=== PATIENT | male | born 1970 | race Hispanic/Latino ===

== ENCOUNTER 2016-06-19 10:05 | Outpatient (CLI) | payer OTHER ==
[2016-06-19 10:25] LABS: #Basophils 0.1 thou/uL (0.0-0.2); #Eosinphils 0.4 thou/uL (0.0-0.7); #Lymphocytes 2.1 thou/uL (1.20-3.40); #Monocytes 0.6 thou/uL (0.11-0.59); #Neutrophils 6.1 thou/uL (1.40-6.50); %Eosinophils 4.6 % (0.0-10.0); %Lymphocytes 22.3 % (21.0-51.0); %Monocytes 6.4 % (0.0-10.0); Hematocrit 29.3 % (42.0-52.0); Mean Platelet Volume 4.7 fL (7.4-10.4); Red Blood Cell (RBC) Count 3.54 mill/uL (4.70-6.10); White Blood Cell (WBC) Count 9.3 thou/uL (4.8-10.8)
[2016-06-19 10:36] LABS: Hemoglobin A1c 11.7 % (4.0-6.0)
[2016-06-19 10:44] LABS: ALT (SGPT) 18 U/L (0-55); AST (SGOT) 14 U/L (5-34); Alkaline Phosphatase 153 U/L (40-150); Anion Gap 14 mmol/L (10-20); BUN (Urea Nitrogen) 42 mg/dL (8.9-20.6); Bilirubin, Total 0.1 mg/dL (0.2-1.2); Calc. Creatinine Clearance 0 mL/min (70-130); Calcium 8.5 mg/dL (7.8-10.44); Carbon Dioxide 24 mmol/L (22-29); Chloride 104 mmol/L (98-107); Estimated GFR-MDRD 23; Globulin 4.2 g/dL (2.4-3.5); LDL Cholesterol, Calculated 26 mg/dL
== END 2016-06-19 10:06 | disposition home or self-care (01) ==
LOC: NAV LABSP 10:05
PROVIDERS: ATTEND Family Medicine
DX: I50.9 Heart failure, unspecified (principal); E11.9 Type 2 diabetes mellitus without complications
CPT/HCPCS: 36415; 80053; 80061; 83036; 84443; 85025

== ENCOUNTER 2016-06-20 13:45 | Outpatient (CLI) | payer OTHER | END 2016-06-20 13:46 | disposition home or self-care (01) | LOC: NAV LABSP 13:45 | PROVIDERS: ATTEND Family Medicine | DX: R19.5 Other fecal abnormalities (principal) | CPT/HCPCS: 82270 ==

== ENCOUNTER 2016-06-24 09:07 | Outpatient (CLI) | payer OTHER | END 2016-06-24 09:08 | disposition home or self-care (01) | LOC: NAV LABSP 09:07 | PROVIDERS: ATTEND Family Medicine | DX: R79.9 Abnormal finding of blood chemistry, unspecified (principal) | CPT/HCPCS: 82274 ==

== ENCOUNTER 2016-06-25 16:04 | Outpatient (CLI) | payer OTHER | END 2016-06-25 16:05 | disposition home or self-care (01) | LOC: NAV LABSP 16:04 | PROVIDERS: ATTEND Family Medicine | DX: R19.7 Diarrhea, unspecified (principal) | CPT/HCPCS: 82270; 87324; 87449 ==

== ENCOUNTER 2016-06-26 10:56 | Outpatient (CLI) | payer OTHER ==
[2016-06-26 15:16] LABS: Anion Gap 12 mmol/L (10-20); BUN (Urea Nitrogen) 35 mg/dL (8.9-20.6); Calc. Creatinine Clearance 0 mL/min (70-130); Calcium 8.7 mg/dL (7.8-10.44); Carbon Dioxide 25 mmol/L (22-29); Chloride 108 mmol/L (98-107); Estimated GFR-MDRD 25
[2016-06-26 15:21] LABS: #Eosinphils 0.2 thou/uL (0.0-0.7); #Lymphocytes 2.2 thou/uL (1.20-3.40); #Monocytes 0.7 thou/uL (0.11-0.59); #Neutrophils 5.2 thou/uL (1.40-6.50); %Basophils 0.6 % (0.0-1.0); %Eosinophils 2.9 % (0.0-10.0); %Monocytes 7.9 % (0.0-10.0); Hematocrit 26.8 % (42.0-52.0); Mean Platelet Volume 4.9 fL (7.4-10.4); Red Blood Cell (RBC) Count 3.32 mill/uL (4.70-6.10); White Blood Cell (WBC) Count 8.4 thou/uL (4.8-10.8)
== END 2016-06-26 10:57 | disposition home or self-care (01) ==
LOC: NAV LABSP 10:56
PROVIDERS: ATTEND Family Medicine
DX: I50.9 Heart failure, unspecified (principal); E11.9 Type 2 diabetes mellitus without complications
CPT/HCPCS: 36415; 80048; 85025

== ENCOUNTER 2016-07-03 09:02 | Outpatient (CLI) | payer OTHER ==
[2016-07-03 09:37] LABS: #Basophils 0.1 thou/uL (0.0-0.2); #Eosinphils 0.3 thou/uL (0.0-0.7); #Lymphocytes 2.1 thou/uL (1.20-3.40); #Monocytes 0.8 thou/uL (0.11-0.59); #Neutrophils 5.8 thou/uL (1.40-6.50); %Basophils 1.1 % (0.0-1.0); %Eosinophils 3.7 % (0.0-10.0); %Lymphocytes 22.6 % (21.0-51.0); Hematocrit 28.9 % (42.0-52.0); Mean Platelet Volume 5.4 fL (7.4-10.4); White Blood Cell (WBC) Count 9.1 thou/uL (4.8-10.8)
[2016-07-03 09:51] LABS: Anion Gap 12 mmol/L (10-20); BUN (Urea Nitrogen) 41 mg/dL (8.9-20.6); Calc. Creatinine Clearance 0 mL/min (70-130); Carbon Dioxide 28 mmol/L (22-29); Chloride 105 mmol/L (98-107); Estimated GFR-MDRD 22
== END 2016-07-03 09:03 | disposition home or self-care (01) ==
LOC: NAV LABSP 09:02
PROVIDERS: ATTEND Family Medicine
DX: I50.9 Heart failure, unspecified (principal); E11.9 Type 2 diabetes mellitus without complications
CPT/HCPCS: 36415; 80048; 85025

== ENCOUNTER 2016-07-10 07:00 | Outpatient (CLI) | payer OTHER ==
[2016-07-10 08:13] LABS: #Basophils 0.1 thou/uL (0.0-0.2); #Eosinphils 0.4 thou/uL (0.0-0.7); #Monocytes 0.7 thou/uL (0.11-0.59); %Basophils 0.7 % (0.0-1.0); %Eosinophils 3.9 % (0.0-10.0); %Lymphocytes 22.2 % (21.0-51.0); %Monocytes 7.5 % (0.0-10.0); Hematocrit 30.7 % (42.0-52.0); Mean Platelet Volume 5.9 fL (7.4-10.4); White Blood Cell (WBC) Count 9.1 thou/uL (4.8-10.8)
[2016-07-10 08:26] LABS: Anion Gap 14 mmol/L (10-20); BUN (Urea Nitrogen) 41 mg/dL (8.9-20.6); Calc. Creatinine Clearance 0 mL/min (70-130); Calcium 9.3 mg/dL (7.8-10.44); Carbon Dioxide 23 mmol/L (22-29); Chloride 106 mmol/L (98-107); Estimated GFR-MDRD 23
== END 2016-07-10 07:01 | disposition home or self-care (01) ==
LOC: NAV LABSP 07:00
PROVIDERS: ATTEND Family Medicine
DX: E11.9 Type 2 diabetes mellitus without complications (principal); I50.9 Heart failure, unspecified
CPT/HCPCS: 36415; 80048; 85025

== ENCOUNTER 2016-07-14 22:54 | Emergency (ER) | payer OTHER ==
[2016-07-14] MEDS ORDERED: Fentanyl 100 MCG/2 ML VIAL ONE (23:14)
[2016-07-14 23:16] LABS: #Basophils 0.1 thou/uL (0.0-0.2); #Eosinphils 0.3 thou/uL (0.0-0.7); #Lymphocytes 2.3 thou/uL (1.20-3.40); #Monocytes 0.7 thou/uL (0.11-0.59); %Basophils 0.9 % (0.0-1.0); %Eosinophils 2.8 % (0.0-10.0); %Lymphocytes 24.7 % (21.0-51.0); %Monocytes 7.6 % (0.0-10.0); Hematocrit 32.6 % (42.0-52.0); Mean Platelet Volume 5.9 fL (7.4-10.4); Red Blood Cell (RBC) Count 3.98 mill/uL (4.70-6.10); White Blood Cell (WBC) Count 9.4 thou/uL (4.8-10.8)
[2016-07-14 23:34] LABS: Bilirubin Negative (Negative); Blood, Urine Moderate (Negative); Glucose, Urine (Dipstick) 500 mg/dL (Negative); Ketone, Urine Negative (Negative); Nitrite Negative (Negative); Protein, Urine (Dipstick) > or equal to 300 mg/dL (Neg-Trace); Urobilinogen 0.2 mg/dL (0.2-1.0)
[2016-07-14 23:35] LABS: ALT (SGPT) 12 U/L (0-55); AST (SGOT) 11 U/L (5-34); Alkaline Phosphatase 130 U/L (40-150); Anion Gap 15 mmol/L (10-20); BUN (Urea Nitrogen) 32 mg/dL (8.9-20.6); Bilirubin, Total 0.2 mg/dL (0.2-1.2); Calc. Creatinine Clearance 0 mL/min (70-130); Calcium 9.1 mg/dL (7.8-10.44); Carbon Dioxide 23 mmol/L (22-29); Chloride 101 mmol/L (98-107); Estimated GFR-MDRD 23; Globulin 4.4 g/dL (2.4-3.5); Protein, Total 7.8 g/dL (6.0-8.3)
[2016-07-14 23:38] LABS: Bacteria/HPF 2+ HPF (None Seen); RBC/HPF 21-50 HPF (0-3); Yeast-All Forms 1+ HPF (None Seen)
[2016-07-14 23:40] LABS: Lactic Acid - Sepsis 2.2 mmol/L (0.5-2.2)
[2016-07-14] MEDS ORDERED: traMADol HCl 50 MG TAB ONE (23:50)
[2016-07-14] MEDS ORDERED: Sodium Chloride 0.9% 0 ML ONE (23:50)
[2016-07-14] MEDS ORDERED: cefTRIAXone\\ROCEPHIN 2 GM VIAL ONE (23:50)
[2016-07-14] MEDS ORDERED: Sodium Chloride 0.9% 1,000 ML ONE (23:50)
[2016-07-14] MEDS ORDERED: Insulin Regular 300 UNITS/3 ML VIAL ONE (23:50)
[2016-07-14] MEDS ORDERED: Sodium Chloride 0.9% 100 ML ONE (23:51)
--- NOTE | 2016-07-15 00:02 | CT ---
CT OF ABDOMEN AND PELVIS PERFORMED WITHOUT CONTRAST ENHANCEMENT: History: Mid left back pain. Patient has Lainez catheter in place, unable to urinate. History of m ultiple lumbar fractures. Comparison: 06-04-15, 12-22-15 FINDINGS: The lung bases show some minimal linear scar or atelectasis. The liver, spleen, pancreas, and gallb ladder regions appear unremarkable on this noncontrast. Right and left adrenal glands are normal in appearance. Mild bilateral hydronephrosis and hydrouret er have a fairly similar appearance to the previous exam. Alinez catheter is in place. There is mar ked diffuse bladder wall thickening present. No significant periaortic or mesenteric adenopathy. T here is a moderate amount of stool present within the transverse and descending colon as well as sig moid region. No inflammatory process. Post-operative changes of the spine are noted. IMPRESSION: Fairly stable mild to moderate bilateral hydronephrosis and hydroureter associated with diffuse blad gary wall thickening. Overall stable exam as compared to the previous study. POS: SCOTTIE
[2016-07-15] MEDS ORDERED: Fluconazole 100 MG TAB ONE (00:09)
--- NOTE | 2016-07-15 01:37 | ERRECORD ---
[facility] EMERGENCY RECORD ADMIN (23:00 [facility]) MERGE: Call In ThuJul 14, 2016 22:51. Ambulance ThuJul 14, 2016 22:50. HPI ABDOMINAL PAIN (23:09 AGRE) CHIEF COMPLAINT: Patient presents for evaluation of abdominal pain. HISTORIAN: History provided by patient, PAIN IN HIS LEFT BACK AND ABDOMEN FOR 3 DAYS. HX OF RECURRENT UTI'S AND USUALLY START WITH BACK PAIN. HAS CHILLS BUT NO FEVER. NO NAUSEA OR VOMITING. NO CONSTIPATION OR DIARRHEA. NO OTHER SYMPTOMS. HAD MULTIPLE FRACTURES OF THE LUMBAR SPINE WITH SURGERY AND UNABLE TO WALK . LIVES IN A SENIOR CARE. HAS A GAYTAN CATHETER IN PLACE BECAUSE UNABLE TO URINATE ON HIS OWN. LOCATION MALE: Symptoms are localized, most severe in the left flank. QUALITY: Pain is dull in nature, described as aching, described as a sensation of fullness, described as throbbing. SEVERITY: Maximum severity of symptoms severe, Currently symptoms are severe. TIME COURSE: Gradual onset of symptoms. ASSOCIATED WITH: Associated with chills, No associated fever, Associated with flank pain, No associated loss of appetite, No associated nausea, No associated testicular pain, No associated trauma, No associated inability to tolerate oral intake, No associated vomiting, Denies any other complaints. RELIEVED BY: Patient's condition relieved by nothing. EXACERBATED BY: Patient's condition exacerbated by nothing. ROS (23:12 AGRE) CONSTITUTIONAL: Historian reports chills, denies fever, denies weakness. EYES: Historian denies eye redness, denies vision changes. ENT: Historian denies sore throat, denies stridor. CARDIOVASCULAR: Historian denies chest pain, denies diaphoresis. RESPIRATORY: Historian denies cough, denies shortness of breath. GI: Historian reports abdominal pain, denies nausea, denies vomiting. MUSCULOSKELETAL: Historian reports back pain, denies neck pain. SKIN: Historian denies skin changes, denies skin lesions. NEUROLOGIC: Historian denies confusion, denies dizziness, denies focal weakness, denies headache. HEMO/LYMPHATIC: Normal hematologic/lymphatic system review, Historian denies petechiae. PSYCHIATRIC: Negative psychiatric review of systems, Historian denies anxiety. PAST MEDICAL HISTORY (23:20 [facility]) MEDICAL HISTORY: Flu vaccine not up to date, Tetanus not up to date, Pneumococcal vaccine not up to &a-1R&a+25V*p+0X*q6235S*c202B*c15G*c2P*p-0X&a-25V&a+1R Name: Roni Le : 1970 M45 MedRec: [id number] AcctNum: [id number] Prepared: ThuJul 15, 2016 06:24 by Interface Page 1 of 7 pMD [facility] EMERGENCY RECORD date, Notes: HYPOKALEMIA, HYPOMAGNESEMIA, URINARY RETENTION , HYDRONEPHROSIS, PT HAS GAYTAN CATH (NOVEMBER 2015), DVT AFTER BACK SURGERY (APR 2015),, Past medical history includes history of diabetes, Type II, Past medical history includes gastrointestinal disease, gastroesophageal reflux disease, Past medical history includes genitourinary history, benign prostatic hypertrophy, Past medical history includes history of hyperlipidemia, high cholesterol, high triglycerides, currently being treated, Past medical history includes history of hypertension, which has been treated, Patient is compliant, Past medical history includes pulmonary disease, pulmonary embolism, Past medical history includes renal disease, end stage renal disease, Flu vaccine up to date, Pneumococcal vaccine up to date, Past medical history includes gastrointestinal disease, pancreatitis, Notes: "Stage 4" kidney disease, Blood clotsx2-on ein lungs and one in ankle , Past medical history includes history of diabetes, Non-compliant, Past medical history includes history of hyperlipidemia, Past medical history includes history of hypertension. MALE SURGICAL HISTORY: Surgical history of tonsillectomy, Lumbar spinal surgery 04/27/2015, Jaw surgery, R wrist sx, Nasal surgery, eye socket repair, heart cath, IVC Filter - removed 05/2015. PSYCHIATRIC HISTORY: Notes: schizophrenia, bipolar. SOCIAL HISTORY: Patient denies alcohol use, Patient is a former drug user, abused marijuana, Patient currently uses tobacco, smokes cigarettes, daily, Patient smokes 1/2 packs per day, Lives in fpc care facility, Name of institution [facility]. KNOWN ALLERGIES ibuprofen Latex, Natural Rubber: Reaction: Rash maitake mushroom (Unconfirmed): Reaction: Anaphylaxis metformin morphine: Reaction: Rash NSAIDS (Non-Steroidal Anti-Inflamma (Unconfirmed) CURRENT MEDICATIONS sucralfate: TABLET : Strength - 1 gram : ORAL Patient Dose: 1 g Oral 2 times a day. (ThuJul 15, 2016 00:05 [facility]) ferrous sulfate: TABLET : Strength - 325 mg (65 mg iron) : ORAL Patient Dose: 325 mg Oral 2 times a day. (ThuJul 15, 2016 00:06 [facility]) atorvastatin: TABLET : Strength - 80 mg : ORAL Patient Dose: 80 mg Oral once a day (at bedtime). (ThuJul 15, 2016 00:06 [facility]) &a-1R&a+25V*p+0X*c9311T*c202B*c15G*c2P*p-0X&a-25V&a+1R Name: Roni Le : 1970 M45 MedRec: [id number] AcctNum: [id number] Prepared: ThuJul 15, 2016 06:24 by Interface Page 2 of 7 pMD [facility] EMERGENCY RECORD Eliquis: TABLET : Strength - 2.5 mg : ORAL Patient Dose: 2.5 mg Oral 2 times a day. (ThuJul 15, 2016 00:06 [facility]) Colace: CAPSULE : Strength - 100 mg : ORAL Patient Dose: 100 mg Oral 2 times a day. (ThuJul 15, 2016 00:07 [facility]) cyclobenzaprine: TABLET : Strength - 10 mg : ORAL Patient Dose: 10 mg Oral 2 times a day. (ThuJul 15, 2016 00:07 [facility]) gabapentin: CAPSULE : Strength - 300 mg : ORAL Patient Dose: 300 mg Oral 2 times a day. (ThuJul 15, 2016 00:08 [facility]) Marcus: POWDER IN PACKET (EA) : Strength - 7 gram-7 gram-1.5 gram : ORAL Patient Dose: 1 Oral 2 times a day. (ThuJul 15, 2016 00:08 [facility]) Flomax: CAPSULE, EXT RELEASE 24 HR : Strength - 0.4 mg : ORAL Patient Dose: 0.4 mg Oral once a day (in the evening). (ThuJul 15, 2016 00:09 [facility]) Dulcolax (bisacodyl): TABLET, DELAYED RELEASE (ENTERIC COATED) : Strength - 5 mg : ORAL Patient Dose: 10 mg Oral once a day (in the evening). (ThuJul 15, 2016 00:09 [facility]) niacin: TABLET, EXTENDED RELEASE : Strength - 500 mg : ORAL Patient Dose: 1000 mg Oral once a day (at bedtime). (ThuJul 15, 2016 00:10 [facility]) furosemide: TABLET : Strength - 40 mg : ORAL Patient Dose: 40 mg Oral once a day (in the morning). (ThuJul 15, 2016 00:12 [facility]) Norvasc: TABLET : Strength - 10 mg : ORAL Patient Dose: 10 mg Oral once a day (in the morning). (ThuJul 15, 2016 00:12 [facility]) multivitamin: CAPSULE : ORAL Patient Dose: 1 tab(s) Oral once a day. (ThuJul 15, 2016 00:13 [facility]) Coreg: TABLET : Strength - 3.125 mg : ORAL Patient Dose: 3.125 mg Oral 2 times a day (with meals).hold for SBP less than 100 or HR less than 60. (ThuJul 15, 2016 00:14 [facility]) Protonix: &a-1R&a+25V*p+0X*k1475U*c202B*c15G*c2P*p-0X&a-25V&a+1R Name: Rey Mino : 1970 M45 MedRec: [id number] AcctNum: [id number] Prepared: ThuJul 15, 2016 06:24 by Interface Page 3 of 7 pMD [facility] EMERGENCY RECORD TABLET, DELAYED RELEASE (ENTERIC COATED) : Strength - 40 mg : ORAL Patient Dose: 40 mg Oral once a day (in the morning). (ThuJul 15, 2016 00:15 [facility]) Invega: TABLET, EXTENDED RELEASE 24 HR : Strength - 6 mg : ORAL Patient Dose: 6 mg Oral once a day (in the morning). (ThuJul 15, 2016 00:16 [facility]) Lexapro: TABLET : Strength - 20 mg : ORAL Patient Dose: 20 mg Oral once a day (in the morning). (ThuJul 15, 2016 00:16 [facility]) traZODone: TABLET : Strength - 100 mg : ORAL Patient Dose: 100 mg Oral As Needed. (ThuJul 15, 2016 00:17 [facility]) traMADol: TABLET : Strength - 50 mg : ORAL Patient Dose: 50 mg Oral every 6 hours PRN. (ThuJul 15, 2016 00:18 [facility]) Tylenol-Codeine #3: TABLET : Strength - 300 mg-30 mg : ORAL Patient Dose: 1 tab(s) Oral every 6 hours PRN. (ThuJul 15, 2016 00:18 [facility]) Tylenol: TABLET : Strength - 325 mg : ORAL Patient Dose: 650 mg Oral every 6 hours PRN. (ThuJul 15, 2016 00:19 [facility]) simethicone: TABLET, CHEWABLE : Strength - 80 mg : ORAL Patient Dose: 80 mg Oral every 8 hours PRN. (ThuJul 15, 2016 00:19 [facility]) Zofran (as hydrochloride): TABLET : Strength - 8 mg : ORAL Patient Dose: 8 mg Oral every 8 hours PRN. (ThuJul 15, 2016 00:20 [facility]) VITAL SIGNS VITAL SIGNS: BP: 155/79, Pulse: 97, Resp: 20, Temp: 97.5 (Oral), Pain: 8 (Sharp), O2 sat: 96 on Room Air, Time: 07/14/2016 22:56. (22:56 [facility]) BP: 132/70, Pulse: 90, Resp: 20, Pain: 7, O2 sat: 97 on Room Air, Time: 07/14/2016 23:45. (23:45 [facility]) BP: 121/70, Pulse: 89, Resp: 20, Pain: 7, O2 sat: 97 on Room Air, Time: 07/15/2016 00:33. (ThuJul 15, 2016 00:33 [facility]) Pain: 1, Time: 07/14/2016 23:20. (23:20 [facility]) PHYSICAL EXAM (23:13 AGRE) CONSTITUTIONAL: Vital signs reviewed, Patient afebrile, Respiratory rate normal, Patient appears non toxic, Patient appears pain free, Patient alert and oriented to person, place and time, &a-1R&a+25V*p+0X*d5612D*c202B*c15G*c2P*p-0X&a-25V&a+1R Name: Roni Le : 1970 M45 MedRec: [id number] AcctNum: [id number] Prepared: ThuJul 15, 2016 06:24 by Interface Page 4 of 7 pMD [facility] EMERGENCY RECORD NURSES NOTES REVIEWED. HEAD: Head exam included findings of head atraumatic, normocephalic. EYES: Eye exam included findings of eyelids normal to inspection, Extraocular muscles intact, Conjunctiva normal, Sclera normal. ENT: Ear exam normal, Nose exam normal, Mouth exam normal. NECK: Neck exam normal, Neck exam included findings of normal range of motion, no meningeal signs, no cervical adenopathy. RESPIRATORY CHEST: Respiratory and chest exam normal, Respiratory exam included findings of no respiratory distress, Breath sounds clear, No wheezing, No rales, No rhonchi, Breath sounds not diminished. CARDIOVASCULAR: Cardiovascular exam included findings of heart rate regular rate and rhythm, Heart sounds with, no rub, no gallop, not muffled, systolic murmur present, Cardiovascular exam included findings of heart rate regular rate and rhythm,. ABDOMEN MALE: Abdominal exam included findings of abdomen tender, to the left upper quadrant, to the left lower quadrant, moderate intensity, Bowel sounds normal, Liver normal, Spleen normal, no distension, no mass, no pulsatile masses, no peritoneal signs, no ventral hernia. BACK: Back exam included findings of normal inspection, range of motion normal, Costovertebral angle tenderness, on the left. UPPER EXTREMITY: Upper extremity exam included findings of inspection normal, Range of motion normal. LOWER EXTREMITY: Lower extremity exam included findings of inspection normal, Range of motion normal, CHRONIC EDEMA OF BILATERAL LOWER EXTREMITIES. NEURO: Neuro exam normal, [place] coma scale 15, Neuro exam findings include patient oriented to person, place and time, Speech normal, Memory normal, Cranial nerves intact, PARESIS OF BILATERAL LOWER EXTREMITIES. SKIN: Skin exam normal, Skin exam included findings of skin warm, dry, and normal in color. LYMPHATIC: Lymphatic exam normal, Lymphatic exam included findings of cervical nodes normal. PSYCHIATRIC: Psychiatric exam normal, Normal affect. 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 MEDICATION ADMINISTRATION SUMMARY Drug Name: Diflucan, Dose Ordered: 200 mg, Route: Oral, Status: Given, Time: 00:09 07/15/2016, Drug Name: Ultram, Dose Ordered: 100 mg, Route: Oral, Status: Given, &a-1R&a+25V*p+0X*f3226R*c202B*c15G*c2P*p-0X&a-25V&a+1R Name: Roni Le : 1970 M45 MedRec: [id number] AcctNum: [id number] Prepared: ThuJul 15, 2016 06:24 by Interface Page 5 of 7 pMD [facility] EMERGENCY RECORD Time: 00:07 07/15/2016, Drug Name: cefTRIAXone injection, Dose Ordered: 2 g, Route: IV Piggy Back, Status: Given, Time: 00:05 07/15/2016, Drug Name: NovoLIN R, Dose Ordered: 10 units, Route: IV Push, Status: Given, Time: 00:00 07/15/2016, Drug Name: sodium chloride 0.9 % intravenous, Dose Ordered: 1000 mL, Route: IV Fluid Infusion, Status: Given, Time: 23:59 07/14/2016, Drug Name: fentaNYL (PF) injection, Dose Ordered: 100 mcg, Route: IV Push, Status: Given, Time: 23:15 07/14/2016, Drug Name: sodium chloride 0.9 % intravenous, Dose Ordered: 1000 mL, Route: IV Fluid Infusion, Status: Given, Time: 23:13 07/14/2016, Detailed record available in Medication Service section. DOCTOR NOTES (ThuJul 15, 2016 06:18 AGRE) RE-EVALUATION: Routine re-evaluation, after administration of analgesics, The patient's condition has improved. TEXT: BLOOD SUGAR UNDER 250 AFTER 2 LITERS OF IV FLUIDS AND 10 UNITS OF REGULAR INSULIN. SINCE PATIENT RECEIVED LONG ACTING INSULIN SHORTLY PRIOR TO ARRIVAL DECIDED NOT TO GIVE ADDITIONAL INSULIN IN ED BUT HE CAN BE MANAGED WITH HIS SLIDING SCALE AT HIS LIVING FACILITY. VS REMAINED STABLE IN THE ED AND HE REMAINED ALERT AND ORIENTED. PAIN RESOLVED WITH ULTRAM. DISCUSSED WITH HIM FINDINGS ON EXAM, RESULTS OF HIS ED WORK UP, UTI, YEAST INFECTION, MANAGEMENT OF HIS BLOOD SUGAR, NEED FOR FOLLOW UP WITH PCP IN AM. HE EXPRESSED UNDERSTANDING AND AGREEMENT WITH THIS PLAN. PATIENT STATUS: Patient has improved since arrival to emergency department. PATIENT PLAN: The patient will be discharged. DATA REVIEWED: Lab data reviewed, Xray data reviewed. PROBLEM LIST No recorded problems DIAGNOSIS (ThuJul 15, 2016 00:04 AGRE) FINAL: PRIMARY: URINARY TRACT INFECTION, ADDITIONAL: BACK PAIN, HYPERGLYCEMIA, YEAST INFECTION. PRESCRIPTION (ThuJul 15, 2016 00:06 AGRE) Diflucan: TABLET : 200 mg : ORAL : Quantity: 1 Unit: tab(s) Route: ORAL Schedule: once a day (at bedtime) Dispense: 14 Unit: tab(s) May substitute. Refills: No Refills POTENTIAL SEVERE INTERACTION: fentaNYL (PF) injection (fentanyl citrate/preservative free) Override Rationale: Benefits outweigh risks, Patient no longer on medication. NOTES: No Refills. Keflex: CAPSULE (HARD, SOFT, ETC.) : 500 mg : ORAL : Quantity: 1 Unit: tab(s) Route: ORAL Schedule: every 6 hours Dispense: 40 &a-1R&a+25V*p+0X*h0059K*c202B*c15G*c2P*p-0X&a-25V&a+1R Name: Roni Le : 1970 3 MedRec: [id number] AcctNum: [id number] Prepared: ThuJul 15, 2016 06:24 by Interface Page 6 of 7 pMD [facility] EMERGENCY RECORD May substitute. Refills: No Refills . NOTES: ^s=No Refills No Refills. DISPOSITION PATIENT: Disposition Type: Discharge, Disposition: *Discharge Home, Condition: Improved. (ThuJul 15, 2016 00:35 AGRE) Patient left the department. (ThuJul 15, 2016 01:27 [facility]) Montero: AGRE=MD Flo, John [facility]=KALYANI Kay, Shakila &a-1R&a+25V*p+0X*v9882D*c202B*c15G*c2P*p-0X&a-25V&a+1R Name: Rey Mino : 1970 3 MedRec: [id number] AcctNum: [id number] Prepared: ThuJul 15, 2016 06:24 by Interface Page 7 of 7 pMD [facility]TDD
--- NOTE | 2016-07-15 01:44 | PICIS ---
[facility] EMERGENCY RECORD ADMIN MERGE: Call In ThuJul 14, 2016 22:51. (23:00 [facility]) Ambulance ThuJul 14, 2016 22:50. (23:00 [facility]) TRIAGE (ThuJul 14, 2016 22:58 [facility]) TRIAGE NOTES: MID-LEFT BACK PAIN. HX OF UTI'S AND KIDNEY INFECTIONS. (ThuJul 14, 2016 22:58 [facility]) PATIENT: NAME: Roni Le, AGE: 45, GENDER: male, : Thu1970, TIME OF GREET: ThuJul 14, 2016 22:56, PREFERRED LANGUAGE: Yoruba, ETHNICITY: or , ECODE BILLING MAP: [facility], SSN: [id number], Zip Code: [address], KG WEIGHT: [phone] (est.), PHONE: , , , PERSON ID: [id number], PCP: Vivek MILLER C. HENRY. (ThuJul 14, 2016 22:58 [facility]) COMPLAINT: CHRONIC BACK PAIN. (ThuJul 14, 2016 22:58 [facility]) ADMISSION: URGENCY: 3 Urgent, ADMISSION SOURCE: [facility], TRANSPORT: AMBULANCE - [facility], BED: TRIAGE. (ThuJul 14, 2016 22:58 [facility]) PAIN: Patient complains of pain described as, sharp, on a scale 0-10 patient rates pain as 8, Location LEFT MIDDLE BACK, Onset was 07/11/2016. (23:20 [facility]) IMMUNIZATIONS: Flu vaccine not up to date, Tetanus not up to date, Pneumococcal vaccine not up to date. (23:20 [facility]) SIRS SCORING: Heart Rate 55-109 (0), Temp range 96.8-101.1 (0), respiratory rate 12-24 (0), Mental Status altered: no (0). (23:20 [facility]) TRIAGE SCREENING: Patient denies suicidal ideation, Patient denies presence of domestic violence. (23:20 [facility]) TREATMENTS IN PROGRESS: IV bag hanging, Site: LAC, Gauge: 20, IV: .9NS, Amount Infused 200, Treatments given Prehospital: 650MG TYLENOL @ 2200. (23:20 [facility]) PROVIDERS: TRIAGE NURSE: Shakila Kay RN. (ThuJul 14, 2016 22:58 [facility]) VITAL SIGNS: BP 155/79, Pulse 97, Resp 20, Temp 97.5, (Oral), Pain 8, (Sharp), O2 Sat 96, on Room Air, Time 07/14/2016 22:56. (22:56 [facility]) PREVIOUS VISIT ALLERGIES: ibuprofen, Latex, Natural Rubber, maitake mushroom, metformin, morphine, NSAIDS (Non-Steroidal Anti-Inflamma. (ThuJul 14, 2016 22:58 [facility]) ibuprofen, Latex, Natural Rubber, maitake mushroom, metformin, morphine, NSAIDS (Non-Steroidal Anti-Inflamma. (23:20 [facility]) KNOWN ALLERGIES ibuprofen Latex, Natural Rubber: Reaction: Rash maitake mushroom (Unconfirmed): Reaction: Anaphylaxis metformin morphine: Reaction: Rash &a-1R&a+25V*p+0X*b1644W*c202B*c15G*c2P*p-0X&a-25V&a+1R Name: Rey Mino : 1970 3 MedRec: [id number] AcctNum: [id number] Prepared: ThuJul 15, 2016 06:29 by Interface Page 1 of 17 pMD [facility] EMERGENCY RECORD NSAIDS (Non-Steroidal Anti-Inflamma (Unconfirmed) CURRENT MEDICATIONS sucralfate: TABLET : Strength - 1 gram : ORAL Patient Dose: 1 g Oral 2 times a day. (ThuJul 15, 2016 00:05 [facility]) ferrous sulfate: TABLET : Strength - 325 mg (65 mg iron) : ORAL Patient Dose: 325 mg Oral 2 times a day. (ThuJul 15, 2016 00:06 [facility]) atorvastatin: TABLET : Strength - 80 mg : ORAL Patient Dose: 80 mg Oral once a day (at bedtime). (ThuJul 15, 2016 00:06 [facility]) Eliquis: TABLET : Strength - 2.5 mg : ORAL Patient Dose: 2.5 mg Oral 2 times a day. (ThuJul 15, 2016 00:06 [facility]) Colace: CAPSULE : Strength - 100 mg : ORAL Patient Dose: 100 mg Oral 2 times a day. (ThuJul 15, 2016 00:07 [facility]) cyclobenzaprine: TABLET : Strength - 10 mg : ORAL Patient Dose: 10 mg Oral 2 times a day. (ThuJul 15, 2016 00:07 [facility]) gabapentin: CAPSULE : Strength - 300 mg : ORAL Patient Dose: 300 mg Oral 2 times a day. (ThuJul 15, 2016 00:08 [facility]) Marcus: POWDER IN PACKET (EA) : Strength - 7 gram-7 gram-1.5 gram : ORAL Patient Dose: 1 Oral 2 times a day. (ThuJul 15, 2016 00:08 [facility]) Flomax: CAPSULE, EXT RELEASE 24 HR : Strength - 0.4 mg : ORAL Patient Dose: 0.4 mg Oral once a day (in the evening). (ThuJul 15, 2016 00:09 [facility]) Dulcolax (bisacodyl): TABLET, DELAYED RELEASE (ENTERIC COATED) : Strength - 5 mg : ORAL Patient Dose: 10 mg Oral once a day (in the evening). (ThuJul 15, 2016 00:09 [facility]) niacin: TABLET, EXTENDED RELEASE : Strength - 500 mg : ORAL Patient Dose: 1000 mg Oral once a day (at bedtime). (ThuJul 15, 2016 00:10 [facility]) furosemide: TABLET : Strength - 40 mg : ORAL Patient Dose: 40 mg Oral once a day (in the morning). (e &a-1R&a+25V*p+0X*q4555U*c202B*c15G*c2P*p-0X&a-25V&a+1R Name: Roni Le : 1970 M45 MedRec: [id number] AcctNum: [id number] Prepared: ThuJul 15, 2016 06:29 by Interface Page 2 of 17 pMD [facility] EMERGENCY RECORD Jul 15, 2016 00:12 [facility]) Norvasc: TABLET : Strength - 10 mg : ORAL Patient Dose: 10 mg Oral once a day (in the morning). (ThuJul 15, 2016 00:12 [facility]) multivitamin: CAPSULE : ORAL Patient Dose: 1 tab(s) Oral once a day. (ThuJul 15, 2016 00:13 [facility]) Coreg: TABLET : Strength - 3.125 mg : ORAL Patient Dose: 3.125 mg Oral 2 times a day (with meals).hold for SBP less than 100 or HR less than 60. (ThuJul 15, 2016 00:14 [facility]) Protonix: TABLET, DELAYED RELEASE (ENTERIC COATED) : Strength - 40 mg : ORAL Patient Dose: 40 mg Oral once a day (in the morning). (ThuJul 15, 2016 00:15 [facility]) Invega: TABLET, EXTENDED RELEASE 24 HR : Strength - 6 mg : ORAL Patient Dose: 6 mg Oral once a day (in the morning). (ThuJul 15, 2016 00:16 [facility]) Lexapro: TABLET : Strength - 20 mg : ORAL Patient Dose: 20 mg Oral once a day (in the morning). (ThuJul 15, 2016 00:16 [facility]) traZODone: TABLET : Strength - 100 mg : ORAL Patient Dose: 100 mg Oral As Needed. (ThuJul 15, 2016 00:17 [facility]) traMADol: TABLET : Strength - 50 mg : ORAL Patient Dose: 50 mg Oral every 6 hours PRN. (ThuJul 15, 2016 00:18 [facility]) Tylenol-Codeine #3: TABLET : Strength - 300 mg-30 mg : ORAL Patient Dose: 1 tab(s) Oral every 6 hours PRN. (ThuJul 15, 2016 00:18 [facility]) Tylenol: TABLET : Strength - 325 mg : ORAL Patient Dose: 650 mg Oral every 6 hours PRN. (ThuJul 15, 2016 00:19 [facility]) simethicone: TABLET, CHEWABLE : Strength - 80 mg : ORAL Patient Dose: 80 mg Oral every 8 hours PRN. (ThuJul 15, 2016 00:19 [facility]) Zofran (as hydrochloride): TABLET : Strength - 8 mg : ORAL Patient Dose: 8 mg Oral every 8 hours PRN. (ThuJul 15, 2016 00:20 [facility]) &a-1R&a+25V*p+0X*v0184H*c202B*c15G*c2P*p-0X&a-25V&a+1R Name: Roni Le : 1970 M45 MedRec: [id number] AcctNum: [id number] Prepared: ThuJul 15, 2016 06:29 by Interface Page 3 of 17 pMD [facility] EMERGENCY RECORD VITAL SIGNS VITAL SIGNS: BP: 155/79, Pulse: 97, Resp: 20, Temp: 97.5 (Oral), Pain: 8 (Sharp), O2 sat: 96 on Room Air, Time: 07/14/2016 22:56. (22:56 [facility]) BP: 132/70, Pulse: 90, Resp: 20, Pain: 7, O2 sat: 97 on Room Air, Time: 07/14/2016 23:45. (23:45 [facility]) BP: 121/70, Pulse: 89, Resp: 20, Pain: 7, O2 sat: 97 on Room Air, Time: 07/15/2016 00:33. (ThuJul 15, 2016 00:33 [facility]) Pain: 1, Time: 07/14/2016 23:20. (23:20 [facility]) NURSING ASSESSMENT: BACK (23:00 [facility]) CONSTITUTIONAL: Complex assessment performed, Patient arrives, via stretcher, via Emergency Medical Services, History obtained from patient, Patient appears, in distress due to pain, Patient cooperative, Patient alert, Oriented to person, place and time, Skin warm, Skin dry, Skin normal in color, Mucous membranes pink, Mucous membranes moist, Patient, with poor personal hygiene, Patient complains of MID-LEFT BACK PAIN. PAIN: sharp pain, to the mid back, to the left flank, Onset of pain 07/11/2016, constant, on a scale 0-10 patient rates pain as 8. BACK: Back assessment findings include tenderness to, the left middle back, Incontinent, of bowel, GAYTAN CATHETER IN PLACE DUE TO URINE RETENTION, Right radial pulse +3(easily palpated, considered normal), Left radial pulse +3(easily palpated, considered normal), Left dorsalis pedis pulse +3(easily palpated, considered normal), Right dorsalis pedis pulse +3(easily palpated, considered normal). NECK: Neck assessment findings include trachea midline, Jugular vein distention. SAFETY: Side rails up, Cart/Stretcher in lowest position, Call light within reach, Hospital ID band on. NURSING PROCEDURE: BEDSIDE TESTING PATIENT IDENTIFIER: Patient actively involved in identification process, Patient's identity verified by patient stating name, Patient's identity verified by patient stating date. (23:01 [facility]) GLUCOSE: Glucose testing indicated for diabetic patient, Capillary blood sample, Result (mg/dl) 354. (23:01 [facility]) Glucose testing indicated for diabetic patient, Glucose testing indicated for hyperglycemia, Capillary blood sample, Result (mg/dl) 240. (ThuJul 15, 2016 00:30 [facility]) SAFETY: Side rails up, Cart/Stretcher in lowest position, Call light within reach, Hospital ID band on. (23:01 [facility]) NURSING PROCEDURE: COMMUNICATIONS (ThuJul 15, 2016 00:45 [facility]) COMMUNICATIONS: [facility], contacted at 00:42, Name of contact &a-1R&a+25V*p+0X*v2611D*c202B*c15G*c2P*p-0X&a-25V&a+1R Name: Roni Le : 1970 M45 MedRec: [id number] AcctNum: [id number] Prepared: ThuJul 15, 2016 06:29 by Interface Page 4 of 17 pMD [facility] EMERGENCY RECORD [facility], Contacted to call report for transfer back to facility, [place] TO CONTACT [facility] FOR TRANSPORT BACK TO FACILITY. NURSING PROCEDURE: DISCHARGE NOTE (ThuJul 15, 2016 01:23 [facility]) DISCHARGE: Patient discharged to fdc, KINDRA CHEATHAM, Copy of chart sent to fdc with patient, on a stretcher, transported via non-urgent ambulance, accompanied by emergency medical services personnel, Summary of Care printed/ provided, Discharge instructions given to patient, Simple or moderate discharge teaching performed, by KALYANI Jhaveri, Prescriptions given and instructions on side effects given, Name of prescription(s) given: KEFLEX & DIFLUCAN, Above person(s) verbalized understanding of discharge instructions and follow-up care. BELONGINGS: Belongings and valuables with patient upon arrival to the Emergency Department include:, Belongings and valuables with patient at time of discharge include:, Belongings remain with patient, Valuables remain with patient. NURSING PROCEDURE: INTAKE AND OUTPUT (ThuJul 15, 2016 01:00 [facility]) INTAKE AND OUTPUT: IV intake(ml): 2100, Total Intake (ml): 2100ml, Urine output(ml): 300, Total Output (ml): 300ml, Grand Total: Intake is greater than output by 1800mls. NURSING PROCEDURE: IV IV SITE 1: IV therapy indicated for hydration, IV therapy indicated for medication administration, IV established, to the left antecubital, using a 20 gauge catheter, Notes: IV PLACED BY EMS [employer]. (23:10 [facility]) FOLLOW-UP SITE 1: After procedure, no drainage at IV site, After procedure, no swelling at IV site, After procedure, no redness at IV site, IV discontinued, due to patient being discharged, catheter intact, Notes: IV discontinued. Tip intact. Pressure applied along with 2x2 and tape. Patient tolerated procedure well. (ThuJul 15, 2016 00:50 [facility]) NURSING PROCEDURE: LAB DRAW LAB DRAW: Lab draw indicated for obtaining specimens for evaluation, Initial lab draw performed, Notes: LABS DRAWN FROM IV SITE. 10ML BLOOD WASTED. 10ML DRAWN FOR TESTING. (23:05 [facility]) Lab draw indicated for obtaining specimens for evaluation, Subsequent lab draw performed, Notes: LABS DRAWN FROM IV SITE. 10ML BLOOD WASTED. 3ML DRAWN FOR TESTING. (23:20 [facility]) NURSING PROCEDURE: TEACHING (23:43 [facility]) TEACHING: Simple or moderate teaching performed, by KALYANI VALDEZ, Gaytan Catheter Care A Gaytan catheter is a rubber tube that is placed through the urethra (opening where urine comes out) and into the bladder. This helps &a-1R&a+25V*p+0X*l4059N*c202B*c15G*c2P*p-0X&a-25V&a+1R Name: Roni Le : 1970 M45 MedRec: [id number] AcctNum: [id number] Prepared: ThuJul 15, 2016 06:29 by Interface Page 5 of 17 pMD [facility] EMERGENCY RECORD drain urine from the bladder. There is a small balloon on the end of the tube that is inflated after insertion. This keeps the catheter from sliding out of the bladder. A Gaytan catheter is used to treat urinary retention (unable to pass urine). It is also used when there is incontinence (loss of bladder control). Home care Finish taking any prescribed antibiotic even if you are feeling better before then. It is important to keep bacteria from getting into the collection bag. Do not disconnect the catheter from the collection bag. Use a leg band to secure the drainage tube, so it does not pull on the catheter. Drain the collection bag when it becomes full using the drain spout at the bottom of the bag. Do not try to pull or remove your catheter. This will injure your urethra. It must be removed by your healthcare provider or nurse. Follow-up care Follow up with your healthcare provider as advised for repeat urine testing and catheter removal or replacement. When to seek medical advice Call your healthcare provider right away if any of these occur: Fever of 100.4F (38C) or higher, or as directed by your healthcare provider Bladder pain or fullness Abdominal swelling, nausea or vomiting, or back pain Blood or urine leakage around the catheter Bloody urine coming from the catheter (if a new symptom) Catheter falls out Catheter stops draining for 6 hours Weakness, dizziness, or fainting, Notes: [facility]INE[facility] CARE PROVIDED PRIOR TO INSERTION OF NEW GAYTAN CATHETER PLACED. HEAD OF PENIS HAD WHITE FILM ALL THE WAY AROUND. PATIENT EDUCATED ON THE NEED TO PERFORM PERICARE EVERYDAY, INCLUDING PULLING BACK THE FORESKIN AND CLEANING THE HEAD OF THE PENIS. PATIENT ALSO EDUCATED ON THENEED TO KEEP GAYTAN CATHETHER ANCHORED TO LEG AND TO USE CAUTION WHEN PUTTING PANTS ON DUE TO TEARING OF OPENING/URETHRA . PATIENT VERBALIZES UNDERSTANDING. NURSING PROCEDURE: TRANSPORT TO TESTS (23:43 [facility]) PATIENT IDENTIFIER: Patient actively involved in identification process, Patient's identity verified by patient stating name, Patient's identity verified by patient stating date. TRANSPORT TO TESTS: Patient transported to CT scan, via cart, Accompanied by x-ray clock repair technician, Patient arrived in location at 2333, Patient departed location at 2343. FOLLOW-UP: After procedure, patient returned to emergency department. NURSING PROCEDURE: URINE COLLECTION (23:20 [facility]) PATIENT IDENTIFIER: Patient actively involved in identification &a-1R&a+25V*p+0X*c4507X*c202B*c15G*c2P*p-0X&a-25V&a+1R Name: Roni Le : 1970 M45 MedRec: [id number] AcctNum: [id number] Prepared: Marixa Jul 15, 2016 06:29 by Interface Page 6 of 17 pMD [facility] EMERGENCY RECORD process, Patient's identity verified by patient stating name, Patient's identity verified by patient stating date. URINE COLLECTION MALE: Simple gaytan inserted, using a 16 fr pre-connected catheter, in one attempt, output amount (mL) 30, urine yellow in color, and cloudy, sediment noted, Gaytan has been anchored to leg and labeled with date and time, Specimen labeled in the presence of the patient and sent to lab, Specimen obtained for culture labeled in the presence of the patient and sent to lab, Notes: 18 FR GAYTAN CATHETHER REMOVED DUE TO PATIENT NOT KNOWING WHEN IT WAS LAST CHANGED OUT. PER ERMD ORDER, GAYTAN REPLACED REPLACED. No inflation of the balloon prior to insertion. KALYANI Valdez did not inflate the balloon until yellow urine passed through the tubing. 10 ml sterile saline inflated the balloon. Patient tolerated procedure well. Gaytan attached to patient's leg with gaytan anchor. FOLLOW UP: Gaytan removed with catheter/balloon intact at 07/14/2016 23:18, Urine output at time of removal (ml) 50, Balloon deflated prior to removal, Patient tolerated procedure well. SAFETY: Side rails up, Cart/Stretcher in lowest position, Call light within reach, Hospital ID band on. ORDER DETAILS Order Name: CBC with Differential, Status: Active, Time: 23:08 07/14/2016, User: ALEK, - Ordered for: MD Rossi Andrea, - Entered by: MD Rossi Andrea - [facility] Jul 14, 2016 23:08, - Quantity: 1, Order Name: Comprehensive Metabolic Panel, Status: Active, Time: 23:08 07/14/2016, User: ALEK, - Ordered for: MD Rossi Andrea, - Entered by: MD Rossi Andrea - [facility] Jul 14, 2016 23:08, - Quantity: 1, Order Name: CT Abdomen Pelvis W Con, Status: Canceled, Time: 23:21 07/14/2016, User: Enrique, - Ordered for: MD Rossi Andrea, - Entered by: MD Rossi Andrea - [facility] Jul 14, 2016 23:08, - Quantity: 1, Order Name: Culture, Urine, Status: Active, Time: 23:08 07/14/2016, User: ALEK, - Ordered for: MD Rossi Andrea, - Entered by: MD Rossi Andrea - [facility] Jul 14, 2016 23:08, - Quantity: 1, Order Name: Lactic Acid with repeat, Status: Active, Time: 23:08 07/14/2016, User: ALEK, - Ordered for: MD Rossi Andrea, - Entered by: MD Rossi Andrea - Mon Jul 14, 2016 23:08, - Quantity: 1, Order Name: SALINE LOCK, Status: Done, Time: 23:21 07/14/2016, User: SHIRA, &a-1R&a+25V*p+0X*v0209E*c202B*c15G*c2P*p-0X&a-25V&a+1R Name: Roni Le : 1970 M45 MedRec: [id number] AcctNum: [id number] Prepared: ThuJul 15, 2016 06:29 by Interface Page 7 of 17 D [facility] EMERGENCY RECORD - Ordered for: MD Rossi Andrea, - Entered by: MD Rossi Andrea - Mon Jul 14, 2016 23:08, - Quantity: 1, Order Name: Urinalysis w/ Rflx Microscopic, Status: Active, Time: 23:08 07/14/2016, User: ALEK, - Ordered for: MD Rossi Andrea, - Entered by: MD Rossi Andrea - Mon Jul 14, 2016 23:08, - Quantity: 1. MEDICATION ADMINISTRATION SUMMARY Drug Name: Diflucan, Dose Ordered: 200 mg, Route: Oral, Status: Given, Time: 00:09 07/15/2016, Drug Name: Ultram, Dose Ordered: 100 mg, Route: Oral, Status: Given, Time: 00:07 07/15/2016, Drug Name: cefTRIAXone injection, Dose Ordered: 2 g, Route: IV Piggy Back, Status: Given, Time: 00:05 07/15/2016, Drug Name: NovoLIN R, Dose Ordered: 10 units, Route: IV Push, Status: Given, Time: 00:00 07/15/2016, Drug Name: sodium chloride 0.9 % intravenous, Dose Ordered: 1000 mL, Route: IV Fluid Infusion, Status: Given, Time: 23:59 07/14/2016, Drug Name: fentaNYL (PF) injection, Dose Ordered: 100 mcg, Route: IV Push, Status: Given, Time: 23:15 07/14/2016, Drug Name: sodium chloride 0.9 % intravenous, Dose Ordered: 1000 mL, Route: IV Fluid Infusion, Status: Given, Time: 23:13 07/14/2016, Detailed record available in Medication Service section. MEDICATION SERVICE cefTRIAXone injection: Order: cefTRIAXone injection (ceftriaxone sodium) - Dose: 2 g : IV Piggy Back Ordered by: John Rossi MD Entered by: John Rossi MD ThuJul 14, 2016 23:44 , Acknowledged by: Courtney Case RN ThuJul 14, 2016 23:52 Documented as given by: Courtney Case RN ThuJul 15, 2016 00:05 Patient, Medication, Dose, Route and Time verified prior to administration. Amount given: 2 g, IV SITE #1 IVPB or drip, initial infusion, IVPB mixed in: 100ml, Fluid: 0.9NS, via primary tubing, via pump tubing, at 200 ml/hr, Catheter placement confirmed via flush prior to administration, IV site without signs or symptoms of infiltration during medication administration, No swelling during administration, No drainage during administration, IV flushed after administration, Correct patient, time, route, dose and medication confirmed prior to administration, Patient advised of actions and side-effects prior to administration, Allergies confirmed and medications reviewed prior to administration, Patient in position of comfort, Side rails up, Cart in lowest position. : Follow Up : No signs or symptoms of allergic reaction noted, _IV SITE #1:_, Medication infusion discontinued, on ThuJul 15, 2016 00:35, 30 minutes, ., Total amount infused: 100ML. (Thu &a-1R&a+25V*p+0X*k5650U*c202B*c15G*c2P*p-0X&a-25V&a+1R Name: Rey Mino : 1970 3 MedRec: [id number] AcctNum: [id number] Prepared: ThuJul 15, 2016 06:29 by Interface Page 8 of 17 pMD [facility] EMERGENCY RECORD 2016 00:35 [facility]) Diflucan: Order: Diflucan (fluconazole) - Dose: 200 mg : Oral POTENTIAL SEVERE INTERACTION: fentaNYL (PF) injection (fentanyl citrate/preservative free) - Benefits outweigh risks Ordered by: John Rossi MD Entered by: John Rossi MD ThuJul 15, 2016 00:03 , Acknowledged by: Courtney Case RN Tue Jul 15, 2016 00:09 Documented as given by: Courtney Case RN [facility] Jul 15, 2016 00:09 Patient, Medication, Dose, Route and Time verified prior to administration. Amount given: 200 mg, Site: Medication administered P.O., Correct patient, time, route, dose and medication confirmed prior to administration, Patient advised of actions and side-effects prior to administration, Allergies confirmed and medications reviewed prior to administration, Patient in position of comfort, Side rails up, Cart in lowest position. fentaNYL (PF) injection: Order: fentaNYL (PF) injection (fentanyl citrate/preservative free) - Dose: 100 mcg : IV Push Ordered by: John Rossi MD Entered by: John Rossi MD ThuJul 14, 2016 23:09 , Acknowledged by: Shakila Kay RN ThuJul 14, 2016 23:13 Documented as given by: Shakila Kay RN ThuJul 14, 2016 23:15 Patient, Medication, Dose, Route and Time verified prior to administration. Amount given: 100MCG, IV SITE #1 IVP, initial medication, Slowly, Awake and alert- acceptable, Catheter placement confirmed via flush prior to administration, IV site without signs or symptoms of infiltration during medication administration, No swelling during administration, No drainage during administration, IV flushed after administration, Correct patient, time, route, dose and medication confirmed prior to administration, Patient advised of actions and side-effects prior to administration, Allergies confirmed and medications reviewed prior to administration. NovoLIN R: Order: NovoLIN R (insulin regular, human) - Dose: 10 units : IV Push Ordered by: John Rossi MD Entered by: John Rossi MD ThuJul 14, 2016 23:39 , Acknowledged by: Courtney Case RN ThuJul 14, 2016 23:52 Documented as given by: Courtney Case RN [facility] Jul 15, 2016 00:00 Patient, Medication, Dose, Route and Time verified prior to administration. Amount given: 10 units, IV SITE #1 IVP, subsequent different medication, Catheter placement confirmed via flush prior to administration, IV site without signs or symptoms of infiltration during medication administration, No swelling during administration, No drainage during administration, IV flushed after administration, Correct patient, time, route, dose and medication confirmed prior to administration, Patient advised of actions and side-effects prior to &a-1R&a+25V*p+0X*i9054J*c202B*c15G*c2P*p-0X&a-25V&a+1R Name: Roni Le : 1970 M45 MedRec: [id number] AcctNum: [id number] Prepared: ThuJul 15, 2016 06:29 by Interface Page 9 of 17 pMD [facility] EMERGENCY RECORD administration, Allergies confirmed and medications reviewed prior to administration, Patient in position of comfort, Side rails up, Cart in lowest position, Co-signed by: Shakila Kay RN ThuJul 15, 2016 00:14, Co-signed by: Shakila Kay RN ThuJul 15, 2016 00:14. : Follow Up : No signs or symptoms of allergic reaction noted, _IV SITE #1:_. (ThuJul 15, 2016 00:30 [facility]) sodium chloride 0.9 % intravenous: Order: sodium chloride 0.9 % intravenous (0.9 % sodium chloride) - Dose: 1000 mL : IV Fluid Infusion Ordered by: John Rossi MD Entered by: John Rossi MD ThuJul 14, 2016 23:08 Documented as given by: Shakila Kay RN ThuJul 14, 2016 23:13 Patient, Medication, Dose, Route and Time verified prior to administration. IV SITE #1 IV fluids established for hydration, IV SITE #1 into left antecubital, IV SITE #1 1st bag hung, amount 1 Liter hung, IV SITE #1 bolus of 1000 ml established, IV SITE #1 Rate of bolus, via primary tubing, via pump tubing, Awake and alert- acceptable, Catheter placement confirmed via flush prior to administration, IV site without signs or symptoms of infiltration during medication administration, No swelling during administration, No drainage during administration, IV flushed after administration, Correct patient, time, route, dose and medication confirmed prior to administration, Patient advised of actions and side-effects prior to administration, Allergies confirmed and medications reviewed prior to administration, BAG CONTINUED FROM EMS. : Follow Up : No signs or symptoms of allergic reaction noted, _IV SITE #1:_, IV fluid infusion discontinued, on ThuJul 14, 2016 23:55, 45 minutes, ., Total amount infused: 1000 ML, IV Line flushed after administration, Advised not to ambulate without assistance, Patient in position of comfort, Side rails up, Cart in lowest position. (23:55 [facility]) sodium chloride 0.9 % intravenous: Order: sodium chloride 0.9 % intravenous (0.9 % sodium chloride) - Dose: 1000 mL : IV Fluid Infusion Ordered by: John Rossi MD Entered by: John Rossi MD ThuJul 14, 2016 23:37 , Acknowledged by: Courtney Case RN ThuJul 14, 2016 23:52 Documented as given by: Courtney Case RN ThuJul 14, 2016 23:59 Patient, Medication, Dose, Route and Time verified prior to administration. Amount given: 1000 ml, IV SITE #1 IV fluids established for hydration, IV SITE #1 into left antecubital, IV SITE #1 2nd bag hung, amount 1 Liter hung, IV SITE #1 bolus of 1000 ml established, via primary tubing, via pump tubing, Catheter placement confirmed via flush prior to administration, IV site without signs or symptoms of infiltration during medication administration, No swelling during administration, No drainage during administration, IV flushed after administration, Correct patient, time, route, dose and medication &a-1R&a+25V*p+0X*i8136B*c202B*c15G*c2P*p-0X&a-25V&a+1R Name: Roni Le : 1970 M45 MedRec: [id number] AcctNum: [id number] Prepared: ThuJul 15, 2016 06:29 by Interface Page 10 of 17 pMD [facility] EMERGENCY RECORD confirmed prior to administration, Patient advised of actions and side-effects prior to administration, Allergies confirmed and medications reviewed prior to administration, Patient in position of comfort, Side rails up, Cart in lowest position. : Follow Up : No signs or symptoms of allergic reaction noted, _IV SITE #1:_, IV fluid infusion discontinued, on ThuJul 15, 2016 00:50, 55 minutes, ., Total amount infused: 1000 ML, IV Discontinued with catheter intact, Advised not to ambulate without assistance, Patient in position of comfort, Side rails up, Cart in lowest position. (ThuJul 15, 2016 00:50 [facility]) Ultram: Order: Ultram (tramadol HCl) - Dose: 100 mg : Oral POTENTIAL ALLERGY REACTION: 'morphine [morphine/morphine sulfate]' - Not a true drug allergy, Reviewed with patient Ordered by: John Rossi MD Entered by: John Rossi MD ThuJul 14, 2016 23:46 , Acknowledged by: Courtney Case RN ThuJul 14, 2016 23:52 Documented as given by: Courtney Case RN [facility] Jul 15, 2016 00:07 Patient, Medication, Dose, Route and Time verified prior to administration. Amount given: 100 mg, Site: Medication administered P.O., Correct patient, time, route, dose and medication confirmed prior to administration, Patient advised of actions and side-effects prior to administration, Allergies confirmed and medications reviewed prior to administration, Patient in position of comfort, Side rails up, Cart in lowest position. HPI ABDOMINAL PAIN (23:09 AGRE) CHIEF COMPLAINT: Patient presents for evaluation of abdominal pain. HISTORIAN: History provided by patient, PAIN IN HIS LEFT BACK AND ABDOMEN FOR 3 DAYS. HX OF RECURRENT UTI'S AND USUALLY START WITH BACK PAIN. HAS CHILLS BUT NO FEVER. NO NAUSEA OR VOMITING. NO CONSTIPATION OR DIARRHEA. NO OTHER SYMPTOMS. HAD MULTIPLE FRACTURES OF THE LUMBAR SPINE WITH SURGERY AND UNABLE TO WALK . LIVES IN A GROUP HOME. HAS A GAYTAN CATHETER IN PLACE BECAUSE UNABLE TO URINATE ON HIS OWN. LOCATION MALE: Symptoms are localized, most severe in the left flank. QUALITY: Pain is dull in nature, described as aching, described as a sensation of fullness, described as throbbing. SEVERITY: Maximum severity of symptoms severe, Currently symptoms are severe. TIME COURSE: Gradual onset of symptoms. ASSOCIATED WITH: Associated with chills, No associated fever, Associated with flank pain, No associated loss of appetite, No associated nausea, No associated testicular pain, No associated trauma, No associated inability to tolerate oral intake, No associated vomiting, Denies any other complaints. RELIEVED BY: Patient's condition relieved by nothing. EXACERBATED BY: Patient's condition exacerbated by nothing. &a-1R&a+25V*p+0X*d8288X*c202B*c15G*c2P*p-0X&a-25V&a+1R Name: Roni Le : 1970 M45 MedRec: [id number] AcctNum: [id number] Prepared: Tue Jul 15, 2016 06:29 by Interface Page 11 of 17 pMD [facility] EMERGENCY RECORD ROS (23:12 [facility]) CONSTITUTIONAL: Historian reports chills, denies fever, denies weakness. EYES: Historian denies eye redness, denies vision changes. ENT: Historian denies sore throat, denies stridor. CARDIOVASCULAR: Historian denies chest pain, denies diaphoresis. RESPIRATORY: Historian denies cough, denies shortness of breath. GI: Historian reports abdominal pain, denies nausea, denies vomiting. MUSCULOSKELETAL: Historian reports back pain, denies neck pain. SKIN: Historian denies skin changes, denies skin lesions. NEUROLOGIC: Historian denies confusion, denies dizziness, denies focal weakness, denies headache. HEMO/LYMPHATIC: Normal hematologic/lymphatic system review, Historian denies petechiae. PSYCHIATRIC: Negative psychiatric review of systems, Historian denies anxiety. PAST MEDICAL HISTORY (23:20 [facility]) MEDICAL HISTORY: Flu vaccine not up to date, Tetanus not up to date, Pneumococcal vaccine not up to date, Notes: HYPOKALEMIA, HYPOMAGNESEMIA, URINARY RETENTION , HYDRONEPHROSIS, PT HAS GAYTAN CATH (NOVEMBER 2015), DVT AFTER BACK SURGERY (APR 2015),, Past medical history includes history of diabetes, Type II, Past medical history includes gastrointestinal disease, gastroesophageal reflux disease, Past medical history includes genitourinary history, benign prostatic hypertrophy, Past medical history includes history of hyperlipidemia, high cholesterol, high triglycerides, currently being treated, Past medical history includes history of hypertension, which has been treated, Patient is compliant, Past medical history includes pulmonary disease, pulmonary embolism, Past medical history includes renal disease, end stage renal disease, Flu vaccine up to date, Pneumococcal vaccine up to date, Past medical history includes gastrointestinal disease, pancreatitis, Notes: "Stage 4" kidney disease, Blood clotsx2-on ein lungs and one in ankle , Past medical history includes history of diabetes, Non-compliant, Past medical history includes history of hyperlipidemia, Past medical history includes history of hypertension. MALE SURGICAL HISTORY: Surgical history of tonsillectomy, Lumbar spinal surgery 04/27/2015, Jaw surgery, R wrist sx, Nasal surgery, eye socket repair, heart cath, IVC Filter - removed 05/2015. PSYCHIATRIC HISTORY: Notes: schizophrenia, bipolar. SOCIAL HISTORY: Patient denies alcohol use, Patient is a former drug user, abused marijuana, Patient currently uses tobacco, smokes cigarettes, daily, Patient smokes 1/2 packs per day, Lives in fdc care facility, Name of &a-1R&a+25V*p+0X*i7718R*c202B*c15G*c2P*p-0X&a-25V&a+1R Name: Roni Le : 1970 M45 MedRec: [id number] AcctNum: [id number] Prepared: Marixa Jul 15, 2016 06:29 by Interface Page 12 of 17 pMD [facility] EMERGENCY RECORD institution [facility]. PHYSICAL EXAM (23:13 AGRE) CONSTITUTIONAL: Vital signs reviewed, Patient afebrile, Respiratory rate normal, Patient appears non toxic, Patient appears pain free, Patient alert and oriented to person, place and time, NURSES NOTES REVIEWED. HEAD: Head exam included findings of head atraumatic, normocephalic. EYES: Eye exam included findings of eyelids normal to inspection, Extraocular muscles intact, Conjunctiva normal, Sclera normal. ENT: Ear exam normal, Nose exam normal, Mouth exam normal. NECK: Neck exam normal, Neck exam included findings of normal range of motion, no meningeal signs, no cervical adenopathy. RESPIRATORY CHEST: Respiratory and chest exam normal, Respiratory exam included findings of no respiratory distress, Breath sounds clear, No wheezing, No rales, No rhonchi, Breath sounds not diminished. CARDIOVASCULAR: Cardiovascular exam included findings of heart rate regular rate and rhythm, Heart sounds with, no rub, no gallop, not muffled, systolic murmur present, Cardiovascular exam included findings of heart rate regular rate and rhythm,. ABDOMEN MALE: Abdominal exam included findings of abdomen tender, to the left upper quadrant, to the left lower quadrant, moderate intensity, Bowel sounds normal, Liver normal, Spleen normal, no distension, no mass, no pulsatile masses, no peritoneal signs, no ventral hernia. BACK: Back exam included findings of normal inspection, range of motion normal, Costovertebral angle tenderness, on the left. UPPER EXTREMITY: Upper extremity exam included findings of inspection normal, Range of motion normal. LOWER EXTREMITY: Lower extremity exam included findings of inspection normal, Range of motion normal, CHRONIC EDEMA OF BILATERAL LOWER EXTREMITIES. NEURO: Neuro exam normal, Dave coma scale 15, Neuro exam findings include patient oriented to person, place and time, Speech normal, Memory normal, Cranial nerves intact, PARESIS OF BILATERAL LOWER EXTREMITIES. SKIN: Skin exam normal, Skin exam included findings of skin warm, dry, and normal in color. LYMPHATIC: Lymphatic exam normal, Lymphatic exam included findings of cervical nodes normal. PSYCHIATRIC: Psychiatric exam normal, Normal affect. LAB INTERPRETATION (23:40 [facility]) INTERPRETATION: CBC abnormal, Hemoglobin decreased, Hematocrit decreased, Chemistry abnormal, Sodium decreased, Glucose &a-1R&a+25V*p+0X*k1531J*c202B*c15G*c2P*p-0X&a-25V&a+1R Name: Roni Le : 1970 M45 MedRec: [id number] AcctNum: [id number] Prepared: ThuJul 15, 2016 06:29 by Interface Page 13 of 17 pMD [facility] EMERGENCY RECORD elevated, BUN elevated, Creatinine elevated, Urinalysis abnormal, positive for leukocytes, positive for erythrocytes, positive for bacteria, positive for glucose, positive for protein. EVENTS TRANSFER: Triage to Emergency Triage. (ThuJul 14, 2016 22:58 [facility]) Emergency Triage to Emergency Room -02. (23:00 [facility]) Removed from Emergency Emergency Room -02. (ThuJul 15, 2016 01:27 [facility]) RADIOLOGYINTERPRETATION (ThuJul 15, 2016 00:02 [facility]) CRIMINAL LEGAL ASSISTANT: Preliminary review of CT scans by, Radiologist, BILATERAL HYDRONEPHROSIS AND HYDROURETER, BLADDER THICKENING, MODERATE STOOL. O2SAT INTERPRETATION (ThuJul 15, 2016 00:01 AGRE) O2SAT: Continuous pulse oximetry, Oxygen saturation 96%, on room air, Oxygen saturation interpretation: Normal, No intervention required. DOCTOR NOTES (ThuJul 15, 2016 06:18 [facility]) RE-EVALUATION: Routine re-evaluation, after administration of analgesics, The patient's condition has improved. TEXT: BLOOD SUGAR UNDER 250 AFTER 2 LITERS OF IV FLUIDS AND 10 UNITS OF REGULAR INSULIN. SINCE PATIENT RECEIVED LONG ACTING INSULIN SHORTLY PRIOR TO ARRIVAL DECIDED NOT TO GIVE ADDITIONAL INSULIN IN ED BUT HE CAN BE MANAGED WITH HIS SLIDING SCALE AT HIS LIVING FACILITY. VS REMAINED STABLE IN THE ED AND HE REMAINED ALERT AND ORIENTED. PAIN RESOLVED WITH ULTRAM. DISCUSSED WITH HIM FINDINGS ON EXAM, RESULTS OF HIS ED WORK UP, UTI, YEAST INFECTION, MANAGEMENT OF HIS BLOOD SUGAR, NEED FOR FOLLOW UP WITH PCP IN AM. HE EXPRESSED UNDERSTANDING AND AGREEMENT WITH THIS PLAN. PATIENT STATUS: Patient has improved since arrival to emergency department. PATIENT PLAN: The patient will be discharged. DATA REVIEWED: Lab data reviewed, Xray data reviewed. PROBLEM LIST No recorded problems DIAGNOSIS (ThuJul 15, 2016 00:04 [facility]) FINAL: PRIMARY: URINARY TRACT INFECTION, ADDITIONAL: BACK PAIN, HYPERGLYCEMIA, YEAST INFECTION. DISPOSITION PATIENT: Disposition Type: Discharge, Disposition: *Discharge Home, Condition: Improved. (ThuJul 15, 2016 00:35 AGRE) Patient left the department. (ThuJul 15, 2016 01:27 [facility]) &a-1R&a+25V*p+0X*r8832M*c202B*c15G*c2P*p-0X&a-25V&a+1R Name: Rey Mino : 1970 M45 MedRec: [id number] AcctNum: [id number] Prepared: ThuJul 15, 2016 06:29 by Interface Page 14 of 17 pMD [facility] EMERGENCY RECORD INSTRUCTION (ThuJul 15, 2016 00:09 [facility]) DISCHARGE: URINARY TRACT INFECTION CYSTITIS MALE ADULT, DIABETIC HYPERGLYCEMIA. FOLLOWUP: Vivek MILLER, Jose TRINIDAD, [facility], [address] [place] [id number], [phone]. SPECIAL: YOU ALSO HAVE A YEAST INFECTION AND WILL NEED TO BE ON ORAL DIFLUCAN FOR THE YEAST. TAKE YOUR MEDICATIONS TILL ALL FINISHED.FOLLOW UP WITH YOUR PRIMARY CARE PHYSICIAN IN THE MORNING FOR MANAGEMENT OF YOUR BLOOD SUGAR AND CONTINUED MANAGEMENT OF YOUR YEAST INFECTION AND URINARY TRACT INFECTION. PRESCRIPTION (ThuJul 15, 2016 00:06 AGRE) Diflucan: TABLET : 200 mg : ORAL : Quantity: 1 Unit: tab(s) Route: ORAL Schedule: once a day (at bedtime) Dispense: 14 Unit: tab(s) May substitute. Refills: No Refills POTENTIAL SEVERE INTERACTION: fentaNYL (PF) injection (fentanyl citrate/preservative free) Override Rationale: Benefits outweigh risks, Patient no longer on medication. NOTES: No Refills. Keflex: CAPSULE (HARD, SOFT, ETC.) : 500 mg : ORAL : Quantity: 1 Unit: tab(s) Route: ORAL Schedule: every 6 hours Dispense: 40 May substitute. Refills: No Refills . NOTES: ^s=No Refills No Refills. IMAGING GROUP HOME NOTES: Image captured from scanner. (ThuJul 15, 2016 00:24 [facility]) Page 2 added. Image captured from scanner. (ThuJul 15, 2016 00:24 [facility]) Page 3 added. Image captured from scanner. (ThuJul 15, 2016 00:24 [facility]) Page 4 added. Image captured from scanner. (ThuJul 15, 2016 00:25 [facility]) Page 5 added. Image captured from scanner. (ThuJul 15, 2016 00:25 [facility]) Page 6 added. Image captured from scanner. (ThuJul 15, 2016 00:25 [facility]) Page 7 added. Image captured from scanner. (ThuJul 15, 2016 00:25 [facility]) Page 8 added. Image captured from scanner. (ThuJul 15, 2016 00:25 [facility]) Page 9 added. Image captured from scanner. (ThuJul 15, 2016 00:25 [facility]) Page 10 added. Image captured from scanner. (ThuJul 15, 2016 00:25 [facility]) Page 11 added. Image captured from scanner. (ThuJul 15, 2016 00:26 [facility]) Page 12 added. Image captured from scanner. (ThuJul 15, 2016 00:26 [facility]) Page 13 added. Image captured from scanner. (ThuJul 15, 2016 00:26 [facility]) *DISCHARGE INSTRUCTIONS RECEIPT: Image captured from scanner. (ThuJul 15, 2016 01:23 [facility]) Page 2 added. Image captured from scanner. (ThuJul 15, 2016 01:24 [facility]) &a-1R&a+25V*p+0X*o8493M*c202B*c15G*c2P*p-0X&a-25V&a+1R Name: Roni Le : 1970 M45 MedRec: [id number] AcctNum: [id number] Prepared: ThuJul 15, 2016 06:29 by Interface Page 15 of 17 D [facility] EMERGENCY RECORD *SUPPLY CHARGE SHEET: Image captured from scanner. (ThuJul 15, 2016 01:24 [facility]) ADMIN DIGITAL SIGNATURE: MD Rossi Andrea. (ThuJul 15, 2016 06:22 [facility]) RESULTS (ThuJul 15, 2016 00:45 [facility]) LABORATORY: Accuchek Collection DT: ThuJul 15, 2016 00:37, *Accuchek 240 - H mg/dL, Range (70-110). Lactic Acid for Sepsis Collection DT: ThuJul 14, 2016 23:25, Lactic Acid - Sepsis 2.2 mmol/L, Range (0.5-2.2). Urine Microscopic Collection DT: ThuJul 14, 2016 23:31, *RBC/HPF 21-50 - H HPF, Range (0-3), *WBC/HPF 11-20 - H HPF, Range (0-3), *Squamous Epithelial 4-6 - H HPF, Range (0-3), *Bacteria/HPF 2+ - H HPF, Range (None Seen), *Yeast-All Forms 1+ - H HPF, Range (None Seen). Urinalysis w/ Rflx Microscopic Collection DT: ThuJul 14, 2016 23:31, Color Yellow , Range (Yellow), Clarity Slightly Cloudy , Range (Clear), Specific [place], Urine 1.015 , Range (1.005-1.030), pH, Urine 7.0 , Range (5.0-9.0), *Leukocyte Small - H , Range (Negative), Nitrite Negative , Range (Negative), *Protein, Urine (Dipstick) > or equal to 300 - mg/dL, * H , Range (Neg-Trace), *Glucose, Urine (Dipstick) 500 - H mg/dL, Range (Negative), Ketone, Urine Negative mg/dL, Range (Negative), Urobilinogen 0.2 mg/dL, Range (0.2-1.0), Bilirubin Negative , Range (Negative), *Blood, Urine Moderate - H , Range (Negative). Comprehensive Metabolic Panel Collection DT: ThuJul 14, 2016 23:13, *Sodium 135 - L mmol/L, Range (136-145), Potassium 4.2 mmol/L, Range (3.5-5.1), Chloride 101 mmol/L, Range (98-107), Carbon Dioxide 23 mmol/L, Range (22-29), Anion Gap 15 mmol/L, Range (10-20), *BUN (Urea Nitrogen) 32 - H mg/dL, Range (8.9-20.6), *Creatinine 3.00 - H mg/dL, Range (0.7-1.3), Estimated GFR-MDRD 23 , Reference Range for Estimated GFR: Greater than 90, mL/min/1.73 m2 NOTE: The MDRD equation has not been validated for use, with the elderly (over 70 years of age), women, patients with, serious comorbid condition or persons with extremes of body size, muscle, mass, or nutritional status. , *Glucose 363 - H mg/dL, Range (70-105), &a-1R&a+25V*p+0X*s4903D*c202B*c15G*c2P*p-0X&a-25V&a+1R Name: Roni Le : 1970 3 MedRec: [id number] AcctNum: [id number] Prepared: Marixa Jul 15, 2016 06:29 by Interface Page 16 of 17 pMD [facility] EMERGENCY RECORD Calcium 9.1 mg/dL, Range (7.8-10.44), Bilirubin, Total 0.2 mg/dL, Range (0.2-1.2), Protein, Total 7.8 g/dL, Range (6.0-8.3), NOTE: Plasma values are generally 0.3 to 0.5 g/dL higher than serum values, due to the presence of fibrinogen. , *Albumin 3.4 - L g/dL, Range (3.5-5.0), *Globulin 4.4 - H g/dL, Range (2.4-3.5), *Alb/Glob Ratio 0.8 - L g/dL, Range (1.2-2.2), Alkaline Phosphatase 130 U/L, Range (40-150), AST (SGOT) 11 U/L, Range (5-34), ALT (SGPT) 12 U/L, Range (0-55). CBC with Differential Collection DT: ThuJul 14, 2016 23:13, White Blood Cell (WBC) Count 9.4 thou/uL, Range (4.8-10.8), *Red Blood Cell (RBC) Count 3.98 - L mill/uL, Range (4.70-6.10), *Hemoglobin 10.8 - L g/dL, Range (14.0-18.0), *Hematocrit 32.6 - L %, Range (42.0-52.0), Mean Corpuscular Volume 81.9 fl, Range (80.0-94.0), Mean Corpuscular Hemoglobin 27.2 pg, Range (27.0-31.0), Mean Corpuscular HGB CONC 33.1 g/dL, Range (32.0-36.0), *RBC Distribution Width 16.1 - H %, Range (11.5-14.5), Platelet Count 350 thou/uL, Range (130-400), *Mean Platelet Volume 5.9 - L fL, Range (7.4-10.4), %Neutrophils 64.0 %, Range (42.0-75.0), %Lymphocytes 24.7 %, Range (21.0-51.0), %Monocytes 7.6 %, Range (0.0-10.0), %Eosinophils 2.8 %, Range (0.0-10.0), %Basophils 0.9 %, Range (0.0-1.0), #Neutrophils 6.0 thou/uL, Range (1.40-6.50), #Lymphocytes 2.3 thou/uL, Range (1.20-3.40), *#Monocytes 0.7 - H thou/uL, Range (0.11-0.59), #Eosinphils 0.3 thou/uL, Range (0.0-0.7), #Basophils 0.1 thou/uL, Range (0.0-0.2). Accuchek Collection DT: ThuJul 14, 2016 23:11, *Accuchek 354 - H mg/dL, Range (70-110). Montero: ALEK=MD Flo, John UPTON=KALYANI Case, Courtney SILVA=KALYANI Kay, Shakila SBRA=RENAE Mohamud Stacey &a-1R&a+25V*p+0X*e0258R*c202B*c15G*c2P*p-0X&a-25V&a+1R Name: Roni Le : 1970 M45 MedRec: [id number] AcctNum: [id number] Prepared: Marixa Jul 15, 2016 06:29 by Interface Page 17 of 17 pMD [facility]TDD
== END 2016-07-15 01:23 ==
LOC: NAV ERS 22:54
DX: B37.49 Other urogenital candidiasis (principal); E11.65 Type 2 diabetes mellitus with hyperglycemia; K21.9 Gastro-esophageal reflux disease without esophagitis; N40.0 Benign prostatic hyperplasia without lower urinary tract symptoms; E78.5 Hyperlipidemia, unspecified; E78.00 Pure hypercholesterolemia, unspecified; Z86.711 Personal history of pulmonary embolism; I12.0 Hypertensive chronic kidney disease with stage 5 chronic kidney disease or end stage renal disease; N18.6 End stage renal disease; F31.9 Bipolar disorder, unspecified; F20.9 Schizophrenia, unspecified; F17.210 Nicotine dependence, cigarettes, uncomplicated; Z79.899 Other long term (current) drug therapy
CPT/HCPCS: 36416; 51702; 74176; 80053; 81003; 81015; 83605; 85025; 87077; 87086; 87186; 96361; 96365; 96375; 36415-59; J0696; J1815; J3010; J7050

== ENCOUNTER 2016-07-17 07:42 | Outpatient (CLI) | payer OTHER ==
[2016-07-17 08:11] LABS: #Basophils 0.1 thou/uL (0.0-0.2); #Eosinphils 0.4 thou/uL (0.0-0.7); #Lymphocytes 2.1 thou/uL (1.20-3.40); #Monocytes 0.8 thou/uL (0.11-0.59); #Neutrophils 5.3 thou/uL (1.40-6.50); %Basophils 1.1 % (0.0-1.0); %Eosinophils 4.1 % (0.0-10.0); %Lymphocytes 24.6 % (21.0-51.0); %Monocytes 8.9 % (0.0-10.0); Hematocrit 31.9 % (42.0-52.0); Mean Platelet Volume 6.3 fL (7.4-10.4); Red Blood Cell (RBC) Count 3.83 mill/uL (4.70-6.10); White Blood Cell (WBC) Count 8.6 thou/uL (4.8-10.8)
[2016-07-17 08:21] LABS: Anion Gap 15 mmol/L (10-20); BUN (Urea Nitrogen) 30 mg/dL (8.9-20.6); Calc. Creatinine Clearance 0 mL/min (70-130); Calcium 9.3 mg/dL (7.8-10.44); Carbon Dioxide 22 mmol/L (22-29); Chloride 104 mmol/L (98-107); Estimated GFR-MDRD 24
== END 2016-07-17 07:43 | disposition home or self-care (01) ==
LOC: NAV LABSP 07:42
PROVIDERS: ATTEND Family Medicine
DX: I50.9 Heart failure, unspecified (principal); E11.9 Type 2 diabetes mellitus without complications
CPT/HCPCS: 36415; 80048; 85025

== ENCOUNTER 2016-07-24 07:09 | Outpatient (CLI) | payer OTHER ==
[2016-07-24 08:07] LABS: #Basophils 0.1 thou/uL (0.0-0.2); #Eosinphils 0.2 thou/uL (0.0-0.7); #Lymphocytes 1.8 thou/uL (1.20-3.40); #Monocytes 0.7 thou/uL (0.11-0.59); #Neutrophils 6.8 thou/uL (1.40-6.50); %Basophils 0.8 % (0.0-1.0); %Eosinophils 2.3 % (0.0-10.0); %Lymphocytes 18.5 % (21.0-51.0); %Monocytes 7.6 % (0.0-10.0); Hematocrit 30.7 % (42.0-52.0); Mean Platelet Volume 6.2 fL (7.4-10.4); Red Blood Cell (RBC) Count 3.69 mill/uL (4.70-6.10); White Blood Cell (WBC) Count 9.6 thou/uL (4.8-10.8)
[2016-07-24 08:18] LABS: Anion Gap 15 mmol/L (10-20); BUN (Urea Nitrogen) 31 mg/dL (8.9-20.6); Calc. Creatinine Clearance 0 mL/min (70-130); Calcium 9.2 mg/dL (7.8-10.44); Carbon Dioxide 23 mmol/L (22-29); Chloride 108 mmol/L (98-107); Estimated GFR-MDRD 16
== END 2016-07-24 07:10 | disposition home or self-care (01) ==
LOC: NAV LABSP 07:09
PROVIDERS: ATTEND Family Medicine
DX: J11.1 Influenza due to unidentified influenza virus with other respiratory manifestations (principal)
CPT/HCPCS: 36415; 80048; 85025

== ENCOUNTER 2016-07-25 11:33 | Outpatient (CLI) | payer OTHER | END 2016-07-25 11:34 | disposition home or self-care (01) | LOC: NAV LABSP 11:33 | PROVIDERS: ATTEND Family Medicine | DX: J11.1 Influenza due to unidentified influenza virus with other respiratory manifestations (principal) ==

== ENCOUNTER 2016-08-04 12:15 | Outpatient (CLI) | payer OTHER ==
[2016-08-04 13:05] LABS: #Basophils 0.1 thou/uL (0.0-0.2); #Eosinphils 0.7 thou/uL (0.0-0.7); #Lymphocytes 1.5 thou/uL (1.20-3.40); #Monocytes 0.7 thou/uL (0.11-0.59); #Neutrophils 7.1 thou/uL (1.40-6.50); %Basophils 1.3 % (0.0-1.0); %Eosinophils 6.5 % (0.0-10.0); %Lymphocytes 15.3 % (21.0-51.0); Hematocrit 27.3 % (42.0-52.0); Mean Platelet Volume 5.5 fL (7.4-10.4); Red Blood Cell (RBC) Count 3.24 mill/uL (4.70-6.10); White Blood Cell (WBC) Count 10.1 thou/uL (4.8-10.8)
[2016-08-04 13:12] LABS: ALT (SGPT) 14 U/L (0-55); AST (SGOT) 13 U/L (5-34); Alkaline Phosphatase 122 U/L (40-150); Anion Gap 16 mmol/L (10-20); BUN (Urea Nitrogen) 48 mg/dL (8.9-20.6); Bilirubin, Total 0.3 mg/dL (0.2-1.2); Calc. Creatinine Clearance 0 mL/min (70-130); Calcium 8.8 mg/dL (7.8-10.44); Carbon Dioxide 21 mmol/L (22-29); Chloride 100 mmol/L (98-107); Estimated GFR-MDRD 18; Globulin 3.5 g/dL (2.4-3.5)
== END 2016-08-04 12:16 | disposition home or self-care (01) ==
LOC: NAV LABSP 12:15
PROVIDERS: ATTEND Family Medicine
DX: N18.4 Chronic kidney disease, stage 4 (severe) (principal)
CPT/HCPCS: 36415; 80053; 85025

== ENCOUNTER 2016-08-14 07:15 | Outpatient (CLI) | payer OTHER ==
[2016-08-14 08:21] LABS: Anion Gap 17 mmol/L (10-20); BUN (Urea Nitrogen) 63 mg/dL (8.9-20.6); Calc. Creatinine Clearance 0 mL/min (70-130); Calcium 9.3 mg/dL (7.8-10.44); Carbon Dioxide 22 mmol/L (22-29); Chloride 104 mmol/L (98-107); Estimated GFR-MDRD 20
[2016-08-14 09:32] LABS: #Basophils 0.1 thou/uL (0.0-0.2); #Lymphocytes 1.6 thou/uL (1.20-3.40); #Monocytes 0.8 thou/uL (0.11-0.59); #Neutrophils 5.9 thou/uL (1.40-6.50); %Basophils 1.2 % (0.0-1.0); %Eosinophils 10.6 % (0.0-10.0); %Lymphocytes 17.3 % (21.0-51.0); %Monocytes 8.4 % (0.0-10.0); Hematocrit 29.4 % (42.0-52.0); Mean Platelet Volume 5.2 fL (7.4-10.4); Red Blood Cell (RBC) Count 3.48 mill/uL (4.70-6.10); White Blood Cell (WBC) Count 9.4 thou/uL (4.8-10.8)
== END 2016-08-14 07:16 | disposition home or self-care (01) ==
LOC: NAV LABSP 07:15
PROVIDERS: ATTEND Family Medicine
DX: I50.9 Heart failure, unspecified (principal); E11.9 Type 2 diabetes mellitus without complications
CPT/HCPCS: 36415; 80048; 85025

== ENCOUNTER 2016-08-21 07:36 | Outpatient (CLI) | payer OTHER ==
[2016-08-21 12:23] LABS: #Basophils 0.1 thou/uL (0.0-0.2); #Eosinphils 1.1 thou/uL (0.0-0.7); #Lymphocytes 1.7 thou/uL (1.20-3.40); #Monocytes 0.5 thou/uL (0.11-0.59); #Neutrophils 5.8 thou/uL (1.40-6.50); %Basophils 0.8 % (0.0-1.0); %Eosinophils 11.7 % (0.0-10.0); %Lymphocytes 18.4 % (21.0-51.0); Hematocrit 26.6 % (42.0-52.0); Mean Platelet Volume 5.5 fL (7.4-10.4); Red Blood Cell (RBC) Count 3.15 mill/uL (4.70-6.10)
[2016-08-21 12:44] LABS: Anion Gap 18 mmol/L (10-20); BUN (Urea Nitrogen) 79 mg/dL (8.9-20.6); Calc. Creatinine Clearance 0 mL/min (70-130); Calcium 8.8 mg/dL (7.8-10.44); Carbon Dioxide 22 mmol/L (22-29); Chloride 101 mmol/L (98-107); Estimated GFR-MDRD 17
== END 2016-08-21 07:37 | disposition home or self-care (01) ==
LOC: NAV LABSP 07:36
PROVIDERS: ATTEND Family Medicine
DX: E11.9 Type 2 diabetes mellitus without complications (principal); I50.9 Heart failure, unspecified
CPT/HCPCS: 36415; 80048; 85025

== ENCOUNTER 2016-09-04 07:40 | Outpatient (CLI) | payer OTHER ==
[2016-09-04 08:42] LABS: Anion Gap 14 mmol/L (10-20); BUN (Urea Nitrogen) 48 mg/dL (8.9-20.6); Calc. Creatinine Clearance 0 mL/min (70-130); Calcium 8.9 mg/dL (7.8-10.44); Carbon Dioxide 25 mmol/L (22-29); Chloride 105 mmol/L (98-107); Estimated GFR-MDRD 17; Glucose 72 mg/dL (70-105); Potassium 4.5 mmol/L (3.5-5.1); Sodium 139 mmol/L (136-145)
[2016-09-04 08:58] LABS: #Basophils 0.1 thou/uL (0.0-0.2); #Eosinphils 0.6 thou/uL (0.0-0.7); #Lymphocytes 1.3 thou/uL (1.20-3.40); #Monocytes 0.6 thou/uL (0.11-0.59); #Neutrophils 4.2 thou/uL (1.40-6.50); %Basophils 1.1 % (0.0-1.0); %Eosinophils 8.7 % (0.0-10.0); %Lymphocytes 19.6 % (21.0-51.0); %Monocytes 8.9 % (0.0-10.0); %Neutrophils 61.7 % (42.0-75.0); Anisocytosis SLIGHT = 6-15 cells (100X) (0-5/hpf); Hemoglobin 7.7 g/dL (14.0-18.0); Hypochromia MODERATE=16-30 cells (100X) (0-5/hpf); MDiff Complete? YES; Mean Corpuscular HGB CONC 31.9 g/dL (32.0-36.0); Mean Corpuscular Hemoglobin 28.5 pg (27.0-31.0); Mean Corpuscular Volume 89.4 fl (80.0-94.0); Mean Platelet Volume 5.9 fL (7.4-10.4); PLT Morphology Comment Appears Adequate; Platelet Count 306 thou/uL (130-400); RBC Distribution Width 18.6 % (11.5-14.5); Red Blood Cell (RBC) Count 2.69 mill/uL (4.70-6.10); White Blood Cell (WBC) Count 6.8 thou/uL (4.8-10.8)
== END 2016-09-04 07:41 | disposition home or self-care (01) ==
LOC: NAV LABSP 07:40
PROVIDERS: ATTEND Family Medicine
DX: I50.9 Heart failure, unspecified (principal); E11.9 Type 2 diabetes mellitus without complications
CPT/HCPCS: 36415; 80048; 85025

== ENCOUNTER 2016-09-19 07:18 | Outpatient (CLI) | payer OTHER ==
[2016-09-19 07:52] LABS: Hemoglobin 8.3 g/dL (14.0-18.0)
[2016-09-19 08:05] LABS: Anion Gap 16 mmol/L (10-20); BUN (Urea Nitrogen) 45 mg/dL (8.9-20.6); Calc. Creatinine Clearance 0 mL/min (70-130); Calcium 8.9 mg/dL (7.8-10.44); Carbon Dioxide 25 mmol/L (22-29); Chloride 100 mmol/L (98-107); Estimated GFR-MDRD 18; Glucose 199 mg/dL (70-105); Iron 26 ug/dL (65-175); Potassium 4.6 mmol/L (3.5-5.1); Sodium 136 mmol/L (136-145)
[2016-09-19 18:05] LABS: Iron Binding Capacity, Total 230 mcg/dL (261-462)
== END 2016-09-19 07:19 | disposition home or self-care (01) ==
LOC: NAV LABSP 07:18
PROVIDERS: ATTEND Family Medicine
DX: I12.9 Hypertensive chronic kidney disease with stage 1 through stage 4 chronic kidney disease, or unspecified chronic kidney disease (principal); N18.4 Chronic kidney disease, stage 4 (severe); D63.1 Anemia in chronic kidney disease; E11.00 Type 2 diabetes mellitus with hyperosmolarity without nonketotic hyperglycemic-hyperosmolar coma (NKHHC); D50.9 Iron deficiency anemia, unspecified; R60.0 Localized edema
CPT/HCPCS: 36415; 80048; 82728; 83540; 83550; 85014; 85018

== ENCOUNTER 2016-09-25 07:40 | Outpatient (CLI) | payer OTHER ==
[2016-09-25 10:29] LABS: Anion Gap 14 mmol/L (10-20); BUN (Urea Nitrogen) 21 mg/dL (8.9-20.6); Calc. Creatinine Clearance 0 mL/min (70-130); Calcium 8.9 mg/dL (7.8-10.44); Carbon Dioxide 31 mmol/L (22-29); Chloride 103 mmol/L (98-107); Estimated GFR-MDRD 31; Potassium 3.8 mmol/L (3.5-5.1); Sodium 144 mmol/L (136-145)
[2016-09-25 10:55] LABS: #Basophils 0.1 thou/uL (0.0-0.2); #Eosinphils 0.4 thou/uL (0.0-0.7); #Lymphocytes 1.3 thou/uL (1.20-3.40); #Monocytes 0.7 thou/uL (0.11-0.59); #Neutrophils 4.2 thou/uL (1.40-6.50); %Basophils 0.9 % (0.0-1.0); %Eosinophils 5.3 % (0.0-10.0); %Lymphocytes 19.5 % (21.0-51.0); %Monocytes 10.8 % (0.0-10.0); %Neutrophils 63.5 % (42.0-75.0); Hemoglobin 8.6 g/dL (14.0-18.0); Mean Corpuscular HGB CONC 31.5 g/dL (32.0-36.0); Mean Corpuscular Hemoglobin 27.4 pg (27.0-31.0); Mean Platelet Volume 5.1 fL (7.4-10.4); Platelet Count 281 thou/uL (130-400); RBC Distribution Width 17.3 % (11.5-14.5); Red Blood Cell (RBC) Count 3.13 mill/uL (4.70-6.10); White Blood Cell (WBC) Count 6.6 thou/uL (4.8-10.8)
[2016-09-25 12:18] LABS: Glucose 55 mg/dL (70-105)
== END 2016-09-25 07:41 | disposition home or self-care (01) ==
LOC: NAV LABSP 07:40
PROVIDERS: ATTEND Family Medicine
DX: I50.9 Heart failure, unspecified (principal); E11.9 Type 2 diabetes mellitus without complications
CPT/HCPCS: 36415; 80048; 85025

== ENCOUNTER 2016-10-02 07:00 | Outpatient (CLI) | payer OTHER ==
[2016-10-02 07:26] LABS: #Basophils 0.1 thou/uL (0.0-0.2); #Eosinphils 0.4 thou/uL (0.0-0.7); #Lymphocytes 1.2 thou/uL (1.20-3.40); #Monocytes 0.7 thou/uL (0.11-0.59); #Neutrophils 5.2 thou/uL (1.40-6.50); %Basophils 1.2 % (0.0-1.0); %Eosinophils 4.7 % (0.0-10.0); %Lymphocytes 15.8 % (21.0-51.0); %Monocytes 8.7 % (0.0-10.0); %Neutrophils 69.7 % (42.0-75.0); Hemoglobin 9.1 g/dL (14.0-18.0); Mean Corpuscular HGB CONC 31.2 g/dL (32.0-36.0); Mean Corpuscular Hemoglobin 26.9 pg (27.0-31.0); Mean Corpuscular Volume 86.4 fl (80.0-94.0); Platelet Count 236 thou/uL (130-400); RBC Distribution Width 17.2 % (11.5-14.5); Red Blood Cell (RBC) Count 3.38 mill/uL (4.70-6.10); White Blood Cell (WBC) Count 7.5 thou/uL (4.8-10.8)
[2016-10-02 07:40] LABS: Anion Gap 15 mmol/L (10-20); BUN (Urea Nitrogen) 19 mg/dL (8.9-20.6); Calc. Creatinine Clearance 0 mL/min (70-130); Calcium 8.9 mg/dL (7.8-10.44); Carbon Dioxide 29 mmol/L (22-29); Chloride 102 mmol/L (98-107); Estimated GFR-MDRD 34; Glucose 118 mg/dL (70-105); Potassium 3.5 mmol/L (3.5-5.1); Sodium 142 mmol/L (136-145)
== END 2016-10-02 07:01 | disposition home or self-care (01) ==
LOC: NAV LABSP 07:00
PROVIDERS: ATTEND Family Medicine
DX: E11.9 Type 2 diabetes mellitus without complications (principal); I50.9 Heart failure, unspecified
CPT/HCPCS: 36415; 80048; 85025

== ENCOUNTER 2016-10-09 07:33 | Outpatient (CLI) | payer OTHER ==
[2016-10-09 08:52] LABS: #Basophils 0.1 thou/uL (0.0-0.2); #Eosinphils 0.4 thou/uL (0.0-0.7); #Lymphocytes 1.5 thou/uL (1.20-3.40); #Monocytes 0.7 thou/uL (0.11-0.59); #Neutrophils 5.5 thou/uL (1.40-6.50); %Eosinophils 4.9 % (0.0-10.0); %Lymphocytes 18.6 % (21.0-51.0); %Monocytes 8.1 % (0.0-10.0); %Neutrophils 67.3 % (42.0-75.0); Hemoglobin 9.9 g/dL (14.0-18.0); Mean Corpuscular HGB CONC 32.3 g/dL (32.0-36.0); Mean Corpuscular Hemoglobin 27.4 pg (27.0-31.0); Mean Corpuscular Volume 84.9 fl (80.0-94.0); Mean Platelet Volume 6.2 fL (7.4-10.4); Platelet Count 273 thou/uL (130-400); RBC Distribution Width 16.5 % (11.5-14.5); White Blood Cell (WBC) Count 8.1 thou/uL (4.8-10.8)
[2016-10-09 09:05] LABS: Anion Gap 12 mmol/L (10-20); BUN (Urea Nitrogen) 16 mg/dL (8.9-20.6); Calc. Creatinine Clearance 0 mL/min (70-130); Calcium 8.4 mg/dL (7.8-10.44); Carbon Dioxide 30 mmol/L (22-29); Chloride 99 mmol/L (98-107); Estimated GFR-MDRD 33; Glucose 134 mg/dL (70-105); Potassium 3.3 mmol/L (3.5-5.1); Sodium 138 mmol/L (136-145)
== END 2016-10-09 07:34 | disposition home or self-care (01) ==
LOC: NAV LABSP 07:33
PROVIDERS: ATTEND Family Medicine
DX: I50.9 Heart failure, unspecified (principal); E11.9 Type 2 diabetes mellitus without complications
CPT/HCPCS: 36415; 80048; 85025

== ENCOUNTER 2016-10-10 13:47 | Outpatient (CLI) | payer OTHER ==
[2016-10-11 16:30] LABS: Body Surface Area 2.24
[2016-10-11 17:37] LABS: Creatinine, Urine 47.42 mg/dL (63-166)
== END 2016-10-10 13:48 | disposition home or self-care (01) ==
LOC: NAV LABSP 13:47
PROVIDERS: ATTEND Family Medicine
DX: N18.6 End stage renal disease (principal)
CPT/HCPCS: 82575

== ENCOUNTER 2016-10-16 07:45 | Outpatient (CLI) | payer OTHER ==
[2016-10-16 08:51] LABS: #Basophils 0.1 thou/uL (0.0-0.2); #Eosinphils 0.4 thou/uL (0.0-0.7); #Lymphocytes 1.6 thou/uL (1.20-3.40); #Monocytes 0.6 thou/uL (0.11-0.59); #Neutrophils 5.3 thou/uL (1.40-6.50); %Basophils 0.9 % (0.0-1.0); %Eosinophils 5.4 % (0.0-10.0); %Lymphocytes 19.7 % (21.0-51.0); %Monocytes 7.7 % (0.0-10.0); %Neutrophils 66.3 % (42.0-75.0); Hemoglobin 10.5 g/dL (14.0-18.0); Mean Corpuscular HGB CONC 32.5 g/dL (32.0-36.0); Mean Corpuscular Hemoglobin 27.2 pg (27.0-31.0); Mean Corpuscular Volume 83.9 fl (80.0-94.0); Mean Platelet Volume 6.8 fL (7.4-10.4); Platelet Count 256 thou/uL (130-400); RBC Distribution Width 16.4 % (11.5-14.5); Red Blood Cell (RBC) Count 3.86 mill/uL (4.70-6.10)
[2016-10-16 08:58] LABS: Anion Gap 13 mmol/L (10-20); BUN (Urea Nitrogen) 14 mg/dL (8.9-20.6); Calc. Creatinine Clearance 0 mL/min (70-130); Calcium 8.6 mg/dL (7.8-10.44); Carbon Dioxide 29 mmol/L (22-29); Chloride 104 mmol/L (98-107); Estimated GFR-MDRD 33; Glucose 98 mg/dL (70-105); Potassium 3.3 mmol/L (3.5-5.1); Sodium 143 mmol/L (136-145)
== END 2016-10-16 07:46 | disposition home or self-care (01) ==
LOC: NAV LABSP 07:45
PROVIDERS: ATTEND Family Medicine
DX: E11.9 Type 2 diabetes mellitus without complications (principal); I50.9 Heart failure, unspecified
CPT/HCPCS: 36415; 80048; 85025

== ENCOUNTER 2016-10-23 07:29 | Outpatient (CLI) | payer OTHER ==
[2016-10-23 08:34] LABS: Anion Gap 14 mmol/L (10-20); BUN (Urea Nitrogen) 16 mg/dL (8.9-20.6); Calc. Creatinine Clearance 0 mL/min (70-130); Calcium 9.3 mg/dL (7.8-10.44); Carbon Dioxide 30 mmol/L (22-29); Chloride 103 mmol/L (98-107); Estimated GFR-MDRD 33; Glucose 94 mg/dL (70-105); Potassium 3.5 mmol/L (3.5-5.1); Sodium 143 mmol/L (136-145)
[2016-10-23 08:35] LABS: #Basophils 0.1 thou/uL (0.0-0.2); #Eosinphils 0.4 thou/uL (0.0-0.7); #Lymphocytes 1.6 thou/uL (1.20-3.40); #Monocytes 0.6 thou/uL (0.11-0.59); #Neutrophils 4.4 thou/uL (1.40-6.50); %Eosinophils 5.3 % (0.0-10.0); %Lymphocytes 22.9 % (21.0-51.0); %Monocytes 8.7 % (0.0-10.0); %Neutrophils 62.2 % (42.0-75.0); Hemoglobin 11.3 g/dL (14.0-18.0); Mean Corpuscular HGB CONC 31.2 g/dL (32.0-36.0); Mean Corpuscular Hemoglobin 26.5 pg (27.0-31.0); Mean Corpuscular Volume 85.1 fl (80.0-94.0); Mean Platelet Volume 6.5 fL (7.4-10.4); Platelet Count 220 thou/uL (130-400); RBC Distribution Width 16.5 % (11.5-14.5); Red Blood Cell (RBC) Count 4.26 mill/uL (4.70-6.10); White Blood Cell (WBC) Count 7.1 thou/uL (4.8-10.8)
== END 2016-10-23 07:30 | disposition home or self-care (01) ==
LOC: NAV LABSP 07:29
PROVIDERS: ATTEND Family Medicine
DX: E11.9 Type 2 diabetes mellitus without complications (principal); I50.9 Heart failure, unspecified
CPT/HCPCS: 36415; 80048; 85025

== ENCOUNTER 2016-10-30 07:18 | Outpatient (CLI) | payer OTHER ==
[2016-10-30 08:10] LABS: #Basophils 0.1 thou/uL (0.0-0.2); #Eosinphils 0.3 thou/uL (0.0-0.7); #Lymphocytes 1.7 thou/uL (1.20-3.40); #Monocytes 0.5 thou/uL (0.11-0.59); #Neutrophils 5.6 thou/uL (1.40-6.50); %Lymphocytes 20.6 % (21.0-51.0); %Monocytes 5.8 % (0.0-10.0); %Neutrophils 68.7 % (42.0-75.0); Hemoglobin 12.1 g/dL (14.0-18.0); Mean Corpuscular HGB CONC 32.7 g/dL (32.0-36.0); Mean Corpuscular Hemoglobin 27.4 pg (27.0-31.0); Mean Corpuscular Volume 83.6 fl (80.0-94.0); Mean Platelet Volume 6.8 fL (7.4-10.4); Platelet Count 279 thou/uL (130-400); RBC Distribution Width 15.7 % (11.5-14.5); Red Blood Cell (RBC) Count 4.43 mill/uL (4.70-6.10); White Blood Cell (WBC) Count 8.2 thou/uL (4.8-10.8)
[2016-10-30 08:21] LABS: Anion Gap 17 mmol/L (10-20); BUN (Urea Nitrogen) 28 mg/dL (8.9-20.6); Calc. Creatinine Clearance 0 mL/min (70-130); Calcium 9.3 mg/dL (7.8-10.44); Carbon Dioxide 23 mmol/L (22-29); Chloride 105 mmol/L (98-107); Estimated GFR-MDRD 24; Glucose 143 mg/dL (70-105); Potassium 3.7 mmol/L (3.5-5.1); Sodium 141 mmol/L (136-145)
== END 2016-10-30 07:19 | disposition home or self-care (01) ==
LOC: NAV LABSP 07:18
PROVIDERS: ATTEND Family Medicine
DX: E11.9 Type 2 diabetes mellitus without complications (principal); I50.9 Heart failure, unspecified
CPT/HCPCS: 36415; 80048; 85025

== ENCOUNTER 2016-11-06 06:50 | Outpatient (CLI) | payer OTHER ==
[2016-11-06 07:38] LABS: Anion Gap 14 mmol/L (10-20); BUN (Urea Nitrogen) 34 mg/dL (8.9-20.6); Calc. Creatinine Clearance 0 mL/min (70-130); Calcium 9.2 mg/dL (7.8-10.44); Carbon Dioxide 29 mmol/L (22-29); Chloride 101 mmol/L (98-107); Estimated GFR-MDRD 22; Glucose 95 mg/dL (70-105); Sodium 140 mmol/L (136-145)
[2016-11-06 07:54] LABS: #Basophils 0.1 thou/uL (0.0-0.2); #Eosinphils 0.4 thou/uL (0.0-0.7); #Lymphocytes 1.8 thou/uL (1.20-3.40); #Monocytes 0.7 thou/uL (0.11-0.59); %Basophils 0.7 % (0.0-1.0); %Eosinophils 4.2 % (0.0-10.0); %Lymphocytes 20.2 % (21.0-51.0); %Monocytes 7.8 % (0.0-10.0); %Neutrophils 67.1 % (42.0-75.0); Hemoglobin 12.2 g/dL (14.0-18.0); Mean Corpuscular HGB CONC 32.5 g/dL (32.0-36.0); Mean Corpuscular Volume 83.2 fl (80.0-94.0); Platelet Count 292 thou/uL (130-400); RBC Distribution Width 15.4 % (11.5-14.5); White Blood Cell (WBC) Count 8.9 thou/uL (4.8-10.8)
== END 2016-11-06 06:51 | disposition home or self-care (01) ==
LOC: NAV LABSP 06:50
PROVIDERS: ATTEND Family Medicine
DX: E11.9 Type 2 diabetes mellitus without complications (principal); I50.9 Heart failure, unspecified
CPT/HCPCS: 36415; 80048; 85025

== ENCOUNTER 2016-11-13 07:26 | Outpatient (CLI) | payer OTHER ==
[2016-11-13 08:41] LABS: #Basophils 0.1 thou/uL (0.0-0.2); #Eosinphils 0.4 thou/uL (0.0-0.7); #Lymphocytes 2.1 thou/uL (1.20-3.40); #Monocytes 0.7 thou/uL (0.11-0.59); #Neutrophils 4.8 thou/uL (1.40-6.50); %Basophils 0.8 % (0.0-1.0); %Eosinophils 4.5 % (0.0-10.0); %Lymphocytes 25.8 % (21.0-51.0); %Monocytes 8.9 % (0.0-10.0); %Neutrophils 59.9 % (42.0-75.0); Hemoglobin 12.8 g/dL (14.0-18.0); Mean Corpuscular HGB CONC 32.6 g/dL (32.0-36.0); Mean Corpuscular Hemoglobin 27.2 pg (27.0-31.0); Mean Corpuscular Volume 83.4 fl (80.0-94.0); Mean Platelet Volume 6.7 fL (7.4-10.4); Platelet Count 280 thou/uL (130-400); RBC Distribution Width 15.2 % (11.5-14.5); Red Blood Cell (RBC) Count 4.72 mill/uL (4.70-6.10); White Blood Cell (WBC) Count 7.9 thou/uL (4.8-10.8)
[2016-11-13 08:53] LABS: Anion Gap 15 mmol/L (10-20); BUN (Urea Nitrogen) 30 mg/dL (8.9-20.6); Calc. Creatinine Clearance 0 mL/min (70-130); Carbon Dioxide 26 mmol/L (22-29); Chloride 102 mmol/L (98-107); Estimated GFR-MDRD 22; Glucose 150 mg/dL (70-105); Potassium 3.8 mmol/L (3.5-5.1); Sodium 139 mmol/L (136-145)
== END 2016-11-13 07:27 | disposition home or self-care (01) ==
LOC: NAV LABSP 07:26
PROVIDERS: ATTEND Family Medicine
DX: I50.9 Heart failure, unspecified (principal); E11.9 Type 2 diabetes mellitus without complications
CPT/HCPCS: 36415; 80048; 85025

== ENCOUNTER 2016-11-20 07:51 | Outpatient (CLI) | payer OTHER ==
[2016-11-20 09:14] LABS: #Basophils 0.1 thou/uL (0.0-0.2); #Eosinphils 0.3 thou/uL (0.0-0.7); #Lymphocytes 1.8 thou/uL (1.20-3.40); #Monocytes 0.8 thou/uL (0.11-0.59); #Neutrophils 5.6 thou/uL (1.40-6.50); %Basophils 0.8 % (0.0-1.0); %Eosinophils 3.9 % (0.0-10.0); %Neutrophils 65.2 % (42.0-75.0); Hemoglobin 12.7 g/dL (14.0-18.0); Mean Corpuscular Hemoglobin 26.6 pg (27.0-31.0); Mean Platelet Volume 6.5 fL (7.4-10.4); Platelet Count 264 thou/uL (130-400); RBC Distribution Width 14.7 % (11.5-14.5); Red Blood Cell (RBC) Count 4.78 mill/uL (4.70-6.10); White Blood Cell (WBC) Count 8.6 thou/uL (4.8-10.8)
[2016-11-20 09:29] LABS: Anion Gap 16 mmol/L (10-20); BUN (Urea Nitrogen) 42 mg/dL (8.9-20.6); Calc. Creatinine Clearance 0 mL/min (70-130); Calcium 9.1 mg/dL (7.8-10.44); Carbon Dioxide 26 mmol/L (22-29); Chloride 100 mmol/L (98-107); Estimated GFR-MDRD 21; Glucose 204 mg/dL (70-105); Potassium 4.1 mmol/L (3.5-5.1); Sodium 138 mmol/L (136-145)
== END 2016-11-20 07:52 | disposition home or self-care (01) ==
LOC: NAV LABSP 07:51
PROVIDERS: ATTEND Family Medicine
DX: E11.9 Type 2 diabetes mellitus without complications (principal); I50.9 Heart failure, unspecified
CPT/HCPCS: 36415; 80048; 85025

== ENCOUNTER 2016-11-27 07:16 | Outpatient (CLI) | payer OTHER ==
[2016-11-27 08:03] LABS: #Basophils 0.1 thou/uL (0.0-0.2); #Eosinphils 0.3 thou/uL (0.0-0.7); #Lymphocytes 1.8 thou/uL (1.20-3.40); #Monocytes 0.6 thou/uL (0.11-0.59); #Neutrophils 5.4 thou/uL (1.40-6.50); %Basophils 1.2 % (0.0-1.0); %Eosinophils 3.8 % (0.0-10.0); %Lymphocytes 21.5 % (21.0-51.0); %Monocytes 7.4 % (0.0-10.0); %Neutrophils 66.1 % (42.0-75.0); Hemoglobin 12.5 g/dL (14.0-18.0); Mean Corpuscular HGB CONC 32.8 g/dL (32.0-36.0); Mean Corpuscular Hemoglobin 26.9 pg (27.0-31.0); Mean Corpuscular Volume 81.9 fl (80.0-94.0); Mean Platelet Volume 7.4 fL (7.4-10.4); Platelet Count 259 thou/uL (130-400); RBC Distribution Width 14.5 % (11.5-14.5); Red Blood Cell (RBC) Count 4.67 mill/uL (4.70-6.10); White Blood Cell (WBC) Count 8.2 thou/uL (4.8-10.8)
[2016-11-27 08:19] LABS: Anion Gap 14 mmol/L (10-20); BUN (Urea Nitrogen) 43 mg/dL (8.9-20.6); Calc. Creatinine Clearance 0 mL/min (70-130); Carbon Dioxide 25 mmol/L (22-29); Chloride 106 mmol/L (98-107); Estimated GFR-MDRD 22; Glucose 223 mg/dL (70-105); Potassium 4.3 mmol/L (3.5-5.1); Sodium 141 mmol/L (136-145)
== END 2016-11-27 07:17 | disposition home or self-care (01) ==
LOC: NAV LABSP 07:16
PROVIDERS: ATTEND Family Medicine
DX: I50.9 Heart failure, unspecified (principal); E11.9 Type 2 diabetes mellitus without complications
CPT/HCPCS: 36415; 80048; 85025

== ENCOUNTER 2016-12-04 09:04 | Outpatient (CLI) | payer OTHER ==
[2016-12-04 09:38] LABS: #Basophils 0.1 thou/uL (0.0-0.2); #Eosinphils 0.3 thou/uL (0.0-0.7); #Lymphocytes 2.1 thou/uL (1.20-3.40); #Monocytes 0.6 thou/uL (0.11-0.59); #Neutrophils 5.4 thou/uL (1.40-6.50); %Basophils 0.8 % (0.0-1.0); %Monocytes 7.3 % (0.0-10.0); %Neutrophils 62.9 % (42.0-75.0); Hemoglobin 12.5 g/dL (14.0-18.0); Mean Corpuscular HGB CONC 32.2 g/dL (32.0-36.0); Mean Corpuscular Hemoglobin 26.8 pg (27.0-31.0); Mean Corpuscular Volume 83.2 fl (80.0-94.0); Mean Platelet Volume 6.8 fL (7.4-10.4); Platelet Count 264 thou/uL (130-400); RBC Distribution Width 14.8 % (11.5-14.5); Red Blood Cell (RBC) Count 4.67 mill/uL (4.70-6.10); White Blood Cell (WBC) Count 8.6 thou/uL (4.8-10.8)
[2016-12-04 09:50] LABS: Anion Gap 18 mmol/L (10-20); BUN (Urea Nitrogen) 42 mg/dL (8.9-20.6); Calc. Creatinine Clearance 0 mL/min (70-130); Carbon Dioxide 20 mmol/L (22-29); Chloride 108 mmol/L (98-107); Estimated GFR-MDRD 21; Glucose 71 mg/dL (70-105); Sodium 142 mmol/L (136-145)
== END 2016-12-04 09:05 | disposition home or self-care (01) ==
LOC: NAV LABSP 09:04
PROVIDERS: ATTEND Family Medicine
DX: E11.9 Type 2 diabetes mellitus without complications (principal); I50.9 Heart failure, unspecified
CPT/HCPCS: 36415; 80048; 85025

== ENCOUNTER 2016-12-05 17:02 | Outpatient (CLI) | payer OTHER ==
[2016-12-06 19:42] LABS: Body Surface Area 2.28; Creatinine, Urine 93.31 mg/dL (63-166)
== END 2016-12-05 17:03 | disposition home or self-care (01) ==
LOC: NAV LABSP 17:02
PROVIDERS: ATTEND Internal Medicine Nephrology
DX: E11.22 Type 2 diabetes mellitus with diabetic chronic kidney disease (principal); N18.6 End stage renal disease; I50.9 Heart failure, unspecified
CPT/HCPCS: 82575

== ENCOUNTER 2016-12-11 06:37 | Outpatient (CLI) | payer OTHER ==
[2016-12-11 08:12] LABS: #Basophils 0.1 thou/uL (0.0-0.2); #Eosinphils 0.3 thou/uL (0.0-0.7); #Lymphocytes 1.9 thou/uL (1.20-3.40); #Monocytes 0.7 thou/uL (0.11-0.59); #Neutrophils 4.7 thou/uL (1.40-6.50); %Basophils 1.1 % (0.0-1.0); %Eosinophils 3.8 % (0.0-10.0); %Lymphocytes 25.1 % (21.0-51.0); %Monocytes 8.6 % (0.0-10.0); %Neutrophils 61.4 % (42.0-75.0); Hemoglobin 12.8 g/dL (14.0-18.0); Mean Corpuscular HGB CONC 33.5 g/dL (32.0-36.0); Mean Corpuscular Hemoglobin 27.3 pg (27.0-31.0); Mean Corpuscular Volume 81.3 fl (80.0-94.0); Mean Platelet Volume 7.2 fL (7.4-10.4); Platelet Count 249 thou/uL (130-400); RBC Distribution Width 14.2 % (11.5-14.5); Red Blood Cell (RBC) Count 4.68 mill/uL (4.70-6.10); White Blood Cell (WBC) Count 7.7 thou/uL (4.8-10.8)
[2016-12-11 08:27] LABS: Anion Gap 14 mmol/L (10-20); BUN (Urea Nitrogen) 37 mg/dL (8.9-20.6); Calc. Creatinine Clearance 0 mL/min (70-130); Calcium 9.2 mg/dL (7.8-10.44); Carbon Dioxide 25 mmol/L (22-29); Chloride 106 mmol/L (98-107); Estimated GFR-MDRD 21; Glucose 91 mg/dL (70-105); Potassium 3.9 mmol/L (3.5-5.1); Sodium 141 mmol/L (136-145)
== END 2016-12-11 06:38 | disposition home or self-care (01) ==
LOC: NAV LABSP 06:37
PROVIDERS: ATTEND Family Medicine
DX: E11.9 Type 2 diabetes mellitus without complications (principal); I50.9 Heart failure, unspecified
CPT/HCPCS: 36415; 80048; 85025

== ENCOUNTER 2016-12-18 09:39 | Outpatient (CLI) | payer OTHER ==
[2016-12-18 10:11] LABS: #Basophils 0.1 thou/uL (0.0-0.2); #Eosinphils 0.3 thou/uL (0.0-0.7); #Monocytes 0.7 thou/uL (0.11-0.59); %Eosinophils 3.8 % (0.0-10.0); %Lymphocytes 24.5 % (21.0-51.0); %Monocytes 8.2 % (0.0-10.0); %Neutrophils 62.5 % (42.0-75.0); Hemoglobin 12.8 g/dL (14.0-18.0); Mean Corpuscular HGB CONC 32.8 g/dL (32.0-36.0); Mean Corpuscular Hemoglobin 27.1 pg (27.0-31.0); Mean Corpuscular Volume 82.7 fl (80.0-94.0); Mean Platelet Volume 6.8 fL (7.4-10.4); Platelet Count 252 thou/uL (130-400); RBC Distribution Width 14.8 % (11.5-14.5); Red Blood Cell (RBC) Count 4.72 mill/uL (4.70-6.10)
[2016-12-18 10:26] LABS: ALT (SGPT) 45 U/L (8-55); AST (SGOT) 28 U/L (5-34); Albumin 3.5 g/dL (3.5-5.0); Alkaline Phosphatase 130 U/L (40-150); Anion Gap 15 mmol/L (10-20); BUN (Urea Nitrogen) 33 mg/dL (8.9-20.6); Bilirubin, Total 0.1 mg/dL (0.2-1.2); Calc. Creatinine Clearance 0 mL/min (70-130); Calcium 9.3 mg/dL (7.8-10.44); Carbon Dioxide 24 mmol/L (22-29); Cardiac Risk 4.9 (Less than 4.5); Chloride 108 mmol/L (98-107); Cholesterol 153 mg/dl (< 200 Desired); Estimated GFR-MDRD 22; Glucose 135 mg/dL (70-105); HDL Cholesterol 31 mg/dL (>60 Neg Risk); LDL Cholesterol, Calculated 44 mg/dL; Potassium 3.9 mmol/L (3.5-5.1); Protein, Total 6.5 g/dL (6.0-8.3); Sodium 143 mmol/L (136-145); Triglycerides 391 mg/dL (Less than 150)
== END 2016-12-18 09:40 | disposition home or self-care (01) ==
LOC: NAV LABSP 09:39
PROVIDERS: ATTEND Family Medicine
DX: E11.9 Type 2 diabetes mellitus without complications (principal); I50.9 Heart failure, unspecified
CPT/HCPCS: 36415; 80053; 80061; 83036; 84443; 85025

== ENCOUNTER 2016-12-25 07:18 | Outpatient (CLI) | payer OTHER ==
[2016-12-25 07:59] LABS: #Basophils 0.1 thou/uL (0.0-0.2); #Eosinphils 0.3 thou/uL (0.0-0.7); #Monocytes 0.8 thou/uL (0.11-0.59); %Eosinophils 3.3 % (0.0-10.0); %Lymphocytes 24.8 % (21.0-51.0); %Monocytes 9.3 % (0.0-10.0); %Neutrophils 61.6 % (42.0-75.0); Hemoglobin 12.6 g/dL (14.0-18.0); Mean Corpuscular HGB CONC 32.9 g/dL (32.0-36.0); Mean Corpuscular Hemoglobin 27.2 pg (27.0-31.0); Mean Corpuscular Volume 82.5 fl (80.0-94.0); Mean Platelet Volume 7.3 fL (7.4-10.4); Platelet Count 277 thou/uL (130-400); RBC Distribution Width 14.2 % (11.5-14.5); Red Blood Cell (RBC) Count 4.63 mill/uL (4.70-6.10); White Blood Cell (WBC) Count 8.1 thou/uL (4.8-10.8)
[2016-12-25 08:07] LABS: Anion Gap 14 mmol/L (10-20); BUN (Urea Nitrogen) 36 mg/dL (8.9-20.6); Calc. Creatinine Clearance 0 mL/min (70-130); Calcium 9.1 mg/dL (7.8-10.44); Carbon Dioxide 27 mmol/L (22-29); Chloride 102 mmol/L (98-107); Estimated GFR-MDRD 21; Glucose 114 mg/dL (70-105); Potassium 3.9 mmol/L (3.5-5.1); Sodium 139 mmol/L (136-145)
== END 2016-12-25 07:19 | disposition home or self-care (01) ==
LOC: NAV LABSP 07:18
PROVIDERS: ATTEND Family Medicine
DX: E11.9 Type 2 diabetes mellitus without complications (principal); I50.9 Heart failure, unspecified
CPT/HCPCS: 36415; 80048; 85025

== ENCOUNTER 2017-01-01 07:13 | Outpatient (CLI) | payer OTHER ==
[2017-01-01 07:48] LABS: Anion Gap 18 mmol/L (10-20); BUN (Urea Nitrogen) 26 mg/dL (8.9-20.6); Calc. Creatinine Clearance 0 mL/min (70-130); Calcium 9.6 mg/dL (7.8-10.44); Carbon Dioxide 28 mmol/L (22-29); Chloride 97 mmol/L (98-107); Estimated GFR-MDRD 23; Glucose 174 mg/dL (70-105); Potassium 3.9 mmol/L (3.5-5.1); Sodium 139 mmol/L (136-145)
[2017-01-01 09:07] LABS: #Basophils 0.1 thou/uL (0.0-0.2); #Eosinphils 0.3 thou/uL (0.0-0.7); #Lymphocytes 2.4 thou/uL (1.20-3.40); #Monocytes 0.7 thou/uL (0.11-0.59); #Neutrophils 5.1 thou/uL (1.40-6.50); %Basophils 0.8 % (0.0-1.0); %Eosinophils 3.2 % (0.0-10.0); %Lymphocytes 28.5 % (21.0-51.0); %Monocytes 8.1 % (0.0-10.0); %Neutrophils 59.5 % (42.0-75.0); Mean Corpuscular HGB CONC 33.9 g/dL (32.0-36.0); Mean Corpuscular Hemoglobin 27.9 pg (27.0-31.0); Mean Corpuscular Volume 82.5 fl (80.0-94.0); Mean Platelet Volume 7.3 fL (7.4-10.4); Platelet Count 317 thou/uL (130-400); RBC Distribution Width 14.8 % (11.5-14.5); White Blood Cell (WBC) Count 8.6 thou/uL (4.8-10.8)
== END 2017-01-01 07:14 | disposition home or self-care (01) ==
LOC: NAV LABSP 07:13
PROVIDERS: ATTEND Family Medicine
DX: E11.9 Type 2 diabetes mellitus without complications (principal); I50.9 Heart failure, unspecified
CPT/HCPCS: 36415; 80048; 85025

== ENCOUNTER 2017-01-08 07:28 | Outpatient (CLI) | payer OTHER ==
[2017-01-08 08:37] LABS: #Basophils 0.1 thou/uL (0.0-0.2); #Eosinphils 0.3 thou/uL (0.0-0.7); #Monocytes 0.6 thou/uL (0.11-0.59); %Basophils 1.1 % (0.0-1.0); %Eosinophils 3.2 % (0.0-10.0); %Lymphocytes 25.2 % (21.0-51.0); %Monocytes 7.7 % (0.0-10.0); %Neutrophils 62.9 % (42.0-75.0); Hemoglobin 12.2 g/dL (14.0-18.0); Mean Corpuscular HGB CONC 32.7 g/dL (32.0-36.0); Mean Corpuscular Hemoglobin 27.5 pg (27.0-31.0); Mean Corpuscular Volume 84.1 fl (80.0-94.0); Platelet Count 258 thou/uL (130-400); RBC Distribution Width 14.7 % (11.5-14.5); Red Blood Cell (RBC) Count 4.43 mill/uL (4.70-6.10)
[2017-01-08 08:48] LABS: Anion Gap 14 mmol/L (10-20); BUN (Urea Nitrogen) 33 mg/dL (8.9-20.6); Calc. Creatinine Clearance 0 mL/min (70-130); Calcium 8.8 mg/dL (7.8-10.44); Carbon Dioxide 28 mmol/L (22-29); Chloride 103 mmol/L (98-107); Estimated GFR-MDRD 20; Glucose 160 mg/dL (70-105); Potassium 3.9 mmol/L (3.5-5.1); Sodium 141 mmol/L (136-145)
== END 2017-01-08 07:29 | disposition home or self-care (01) ==
LOC: NAV LABSP 07:28
PROVIDERS: ATTEND Family Medicine
DX: E11.9 Type 2 diabetes mellitus without complications (principal); I50.9 Heart failure, unspecified
CPT/HCPCS: 36415; 80048; 85025

== ENCOUNTER 2017-01-15 07:00 | Outpatient (CLI) | payer OTHER ==
[2017-01-15 07:27] LABS: #Basophils 0.1 thou/uL (0.0-0.2); #Eosinphils 0.3 thou/uL (0.0-0.7); #Lymphocytes 2.4 thou/uL (1.20-3.40); #Monocytes 0.8 thou/uL (0.11-0.59); #Neutrophils 6.5 thou/uL (1.40-6.50); %Basophils 1.1 % (0.0-1.0); %Eosinophils 3.1 % (0.0-10.0); %Lymphocytes 23.4 % (21.0-51.0); %Monocytes 8.3 % (0.0-10.0); Hemoglobin 13.9 g/dL (14.0-18.0); Mean Corpuscular HGB CONC 33.5 g/dL (32.0-36.0); Mean Corpuscular Hemoglobin 28.1 pg (27.0-31.0); Mean Platelet Volume 7.5 fL (7.4-10.4); Platelet Count 315 thou/uL (130-400); RBC Distribution Width 14.9 % (11.5-14.5); Red Blood Cell (RBC) Count 4.96 mill/uL (4.70-6.10); White Blood Cell (WBC) Count 10.1 thou/uL (4.8-10.8)
[2017-01-15 07:37] LABS: Anion Gap 17 mmol/L (10-20); BUN (Urea Nitrogen) 19 mg/dL (8.9-20.6); Calc. Creatinine Clearance 0 mL/min (70-130); Calcium 9.2 mg/dL (7.8-10.44); Carbon Dioxide 28 mmol/L (22-29); Chloride 93 mmol/L (98-107); Estimated GFR-MDRD 23; Glucose 200 mg/dL (70-105); Potassium 3.9 mmol/L (3.5-5.1); Sodium 134 mmol/L (136-145)
== END 2017-01-15 07:01 | disposition home or self-care (01) ==
LOC: NAV LABSP 07:00
PROVIDERS: ATTEND Family Medicine
DX: E11.9 Type 2 diabetes mellitus without complications (principal); I50.9 Heart failure, unspecified
CPT/HCPCS: 36415; 80048; 85025

== ENCOUNTER 2017-01-22 07:12 | Outpatient (CLI) | payer OTHER ==
[2017-01-22 07:53] LABS: #Basophils 0.1 thou/uL (0.0-0.2); #Eosinphils 0.3 thou/uL (0.0-0.7); #Lymphocytes 2.3 thou/uL (1.20-3.40); #Monocytes 0.7 thou/uL (0.11-0.59); #Neutrophils 5.4 thou/uL (1.40-6.50); %Eosinophils 3.1 % (0.0-10.0); %Lymphocytes 26.9 % (21.0-51.0); %Monocytes 7.5 % (0.0-10.0); %Neutrophils 61.5 % (42.0-75.0); Hemoglobin 13.6 g/dL (14.0-18.0); Mean Corpuscular HGB CONC 33.2 g/dL (32.0-36.0); Mean Corpuscular Hemoglobin 28.5 pg (27.0-31.0); Mean Corpuscular Volume 85.8 fl (80.0-94.0); Mean Platelet Volume 6.6 fL (7.4-10.4); Platelet Count 347 thou/uL (130-400); RBC Distribution Width 14.9 % (11.5-14.5); Red Blood Cell (RBC) Count 4.79 mill/uL (4.70-6.10); White Blood Cell (WBC) Count 8.7 thou/uL (4.8-10.8)
[2017-01-22 08:00] LABS: Anion Gap 15 mmol/L (10-20); BUN (Urea Nitrogen) 28 mg/dL (8.9-20.6); Calc. Creatinine Clearance 0 mL/min (70-130); Carbon Dioxide 30 mmol/L (22-29); Chloride 97 mmol/L (98-107); Estimated GFR-MDRD 21; Glucose 158 mg/dL (70-105); Sodium 138 mmol/L (136-145)
== END 2017-01-22 07:13 | disposition home or self-care (01) ==
LOC: NAV LABSP 07:12
PROVIDERS: ATTEND Family Medicine
DX: E11.9 Type 2 diabetes mellitus without complications (principal); I50.9 Heart failure, unspecified
CPT/HCPCS: 36415; 80048; 85025

== ENCOUNTER 2017-01-29 07:17 | Outpatient (CLI) | payer OTHER ==
[2017-01-29 07:38] LABS: #Basophils 0.1 thou/uL (0.0-0.2); #Eosinphils 0.3 thou/uL (0.0-0.7); #Lymphocytes 2.1 thou/uL (1.20-3.40); #Monocytes 0.9 thou/uL (0.11-0.59); #Neutrophils 6.7 thou/uL (1.40-6.50); %Basophils 0.8 % (0.0-1.0); %Eosinophils 2.6 % (0.0-10.0); %Lymphocytes 20.6 % (21.0-51.0); %Monocytes 9.2 % (0.0-10.0); %Neutrophils 66.9 % (42.0-75.0); Hemoglobin 14.1 g/dL (14.0-18.0); Mean Corpuscular HGB CONC 33.8 g/dL (32.0-36.0); Mean Corpuscular Hemoglobin 28.7 pg (27.0-31.0); Mean Corpuscular Volume 84.8 fl (80.0-94.0); Platelet Count 295 thou/uL (130-400); RBC Distribution Width 14.9 % (11.5-14.5); Red Blood Cell (RBC) Count 4.92 mill/uL (4.70-6.10)
[2017-01-29 07:51] LABS: Anion Gap 14 mmol/L (10-20); BUN (Urea Nitrogen) 30 mg/dL (8.9-20.6); Calc. Creatinine Clearance 0 mL/min (70-130); Calcium 9.5 mg/dL (7.8-10.44); Carbon Dioxide 30 mmol/L (22-29); Chloride 98 mmol/L (98-107); Estimated GFR-MDRD 20; Glucose 181 mg/dL (70-105); Sodium 138 mmol/L (136-145)
== END 2017-01-29 07:18 | disposition home or self-care (01) ==
LOC: NAV LABSP 07:17
PROVIDERS: ATTEND Family Medicine
DX: I50.9 Heart failure, unspecified (principal); E11.9 Type 2 diabetes mellitus without complications
CPT/HCPCS: 80048; 85025

== ENCOUNTER 2017-02-05 07:07 | Outpatient (CLI) | payer OTHER ==
[2017-02-05 07:27] LABS: #Basophils 0.1 thou/uL (0.0-0.2); #Eosinphils 0.3 thou/uL (0.0-0.7); #Lymphocytes 3.1 thou/uL (1.20-3.40); #Neutrophils 6.3 thou/uL (1.40-6.50); %Eosinophils 2.6 % (0.0-10.0); %Lymphocytes 28.3 % (21.0-51.0); %Monocytes 9.6 % (0.0-10.0); %Neutrophils 58.6 % (42.0-75.0); Hemoglobin 12.6 g/dL (14.0-18.0); Mean Corpuscular HGB CONC 33.1 g/dL (32.0-36.0); Mean Corpuscular Hemoglobin 28.5 pg (27.0-31.0); Mean Corpuscular Volume 86.3 fl (80.0-94.0); Mean Platelet Volume 6.8 fL (7.4-10.4); Platelet Count 294 thou/uL (130-400); White Blood Cell (WBC) Count 10.8 thou/uL (4.8-10.8)
[2017-02-05 07:38] LABS: Anion Gap 14 mmol/L (10-20); BUN (Urea Nitrogen) 30 mg/dL (8.9-20.6); Calc. Creatinine Clearance 0 mL/min (70-130); Calcium 8.9 mg/dL (7.8-10.44); Carbon Dioxide 29 mmol/L (22-29); Chloride 99 mmol/L (98-107); Estimated GFR-MDRD 19; Glucose 90 mg/dL (70-105); Potassium 3.6 mmol/L (3.5-5.1); Sodium 138 mmol/L (136-145)
== END 2017-02-05 07:08 | disposition home or self-care (01) ==
LOC: NAV LABSP 07:07
PROVIDERS: ATTEND Family Medicine
DX: I50.9 Heart failure, unspecified (principal); E11.9 Type 2 diabetes mellitus without complications
CPT/HCPCS: 36415; 80048; 85025

== ENCOUNTER 2017-02-12 07:31 | Outpatient (CLI) | payer OTHER ==
[2017-02-12 08:12] LABS: Anion Gap 17 mmol/L (10-20); BUN (Urea Nitrogen) 30 mg/dL (8.9-20.6); Calc. Creatinine Clearance 0 mL/min (70-130); Calcium 9.4 mg/dL (7.8-10.44); Carbon Dioxide 29 mmol/L (22-29); Chloride 97 mmol/L (98-107); Estimated GFR-MDRD 21; Glucose 89 mg/dL (70-105); Potassium 3.9 mmol/L (3.5-5.1); Sodium 139 mmol/L (136-145)
[2017-02-12 08:18] LABS: #Basophils 0.1 thou/uL (0.0-0.2); #Eosinphils 0.2 thou/uL (0.0-0.7); #Lymphocytes 2.6 thou/uL (1.20-3.40); #Monocytes 0.9 thou/uL (0.11-0.59); #Neutrophils 6.4 thou/uL (1.40-6.50); %Basophils 0.9 % (0.0-1.0); %Eosinophils 2.3 % (0.0-10.0); %Lymphocytes 25.2 % (21.0-51.0); %Monocytes 8.5 % (0.0-10.0); %Neutrophils 63.1 % (42.0-75.0); Hemoglobin 13.7 g/dL (14.0-18.0); Mean Corpuscular HGB CONC 32.6 g/dL (32.0-36.0); Mean Corpuscular Hemoglobin 28.3 pg (27.0-31.0); Mean Corpuscular Volume 86.8 fl (80.0-94.0); Mean Platelet Volume 6.7 fL (7.4-10.4); Platelet Count 330 thou/uL (130-400); RBC Distribution Width 14.4 % (11.5-14.5); Red Blood Cell (RBC) Count 4.86 mill/uL (4.70-6.10); White Blood Cell (WBC) Count 10.2 thou/uL (4.8-10.8)
== END 2017-02-12 07:32 | disposition home or self-care (01) ==
LOC: NAV LABSP 07:31
PROVIDERS: ATTEND Family Medicine
DX: I50.9 Heart failure, unspecified (principal); E11.9 Type 2 diabetes mellitus without complications
CPT/HCPCS: 36415; 80048; 85025

== ENCOUNTER 2017-02-20 11:43 | Outpatient (CLI) | payer OTHER ==
[2017-02-20 12:05] LABS: #Basophils 0.1 thou/uL (0.0-0.2); #Eosinphils 0.3 thou/uL (0.0-0.7); #Lymphocytes 2.3 thou/uL (1.20-3.40); #Monocytes 0.7 thou/uL (0.11-0.59); #Neutrophils 5.8 thou/uL (1.40-6.50); %Basophils 0.8 % (0.0-1.0); %Monocytes 7.9 % (0.0-10.0); %Neutrophils 63.4 % (42.0-75.0); Hemoglobin 12.4 g/dL (14.0-18.0); Mean Corpuscular HGB CONC 34.3 g/dL (32.0-36.0); Mean Corpuscular Volume 87.4 fl (80.0-94.0); Mean Platelet Volume 6.9 fL (7.4-10.4); Platelet Count 274 thou/uL (130-400); RBC Distribution Width 14.6 % (11.5-14.5); Red Blood Cell (RBC) Count 4.12 mill/uL (4.70-6.10); White Blood Cell (WBC) Count 9.2 thou/uL (4.8-10.8)
[2017-02-20 12:11] LABS: Anion Gap 15 mmol/L (10-20); BUN (Urea Nitrogen) 42 mg/dL (8.9-20.6); Calc. Creatinine Clearance 0 mL/min (70-130); Calcium 8.9 mg/dL (7.8-10.44); Carbon Dioxide 22 mmol/L (22-29); Chloride 108 mmol/L (98-107); Estimated GFR-MDRD 19; Glucose 133 mg/dL (70-105); Potassium 4.3 mmol/L (3.5-5.1); Sodium 141 mmol/L (136-145)
== END 2017-02-20 11:44 | disposition home or self-care (01) ==
LOC: NAV LAB 11:43
PROVIDERS: ATTEND Family Medicine
DX: E11.9 Type 2 diabetes mellitus without complications (principal); I50.9 Heart failure, unspecified
CPT/HCPCS: 36415; 80048; 85025

== ENCOUNTER 2017-02-25 07:18 | Outpatient (CLI) | payer OTHER ==
[2017-02-25 08:17] LABS: #Basophils 0.1 thou/uL (0.0-0.2); #Eosinphils 0.3 thou/uL (0.0-0.7); #Lymphocytes 2.5 thou/uL (1.20-3.40); #Monocytes 0.7 thou/uL (0.11-0.59); #Neutrophils 5.2 thou/uL (1.40-6.50); %Lymphocytes 28.2 % (21.0-51.0); %Monocytes 7.7 % (0.0-10.0); %Neutrophils 60.1 % (42.0-75.0); Hemoglobin 12.3 g/dL (14.0-18.0); Mean Corpuscular HGB CONC 32.8 g/dL (32.0-36.0); Mean Corpuscular Volume 88.4 fl (80.0-94.0); Mean Platelet Volume 6.9 fL (7.4-10.4); Platelet Count 277 thou/uL (130-400); RBC Distribution Width 13.9 % (11.5-14.5); Red Blood Cell (RBC) Count 4.22 mill/uL (4.70-6.10); White Blood Cell (WBC) Count 8.7 thou/uL (4.8-10.8)
[2017-02-25 08:26] LABS: Anion Gap 15 mmol/L (10-20); BUN (Urea Nitrogen) 50 mg/dL (8.9-20.6); Calc. Creatinine Clearance 0 mL/min (70-130); Calcium 8.9 mg/dL (7.8-10.44); Carbon Dioxide 21 mmol/L (22-29); Chloride 108 mmol/L (98-107); Estimated GFR-MDRD 20; Glucose 98 mg/dL (70-105); Phosphorus 4.4 mg/dL (2.3-4.7); Potassium 4.1 mmol/L (3.5-5.1); Sodium 140 mmol/L (136-145)
== END 2017-02-25 07:19 | disposition home or self-care (01) ==
LOC: NAV LABSP 07:18
PROVIDERS: ATTEND Internal Medicine Nephrology
DX: E11.22 Type 2 diabetes mellitus with diabetic chronic kidney disease (principal); N18.4 Chronic kidney disease, stage 4 (severe); I50.9 Heart failure, unspecified
CPT/HCPCS: 36415; 80048; 84100; 85025

== ENCOUNTER 2017-03-05 07:07 | Outpatient (CLI) | payer OTHER ==
[2017-03-05 07:36] LABS: #Basophils 0.1 thou/uL (0.0-0.2); #Eosinphils 0.3 thou/uL (0.0-0.7); #Lymphocytes 1.8 thou/uL (1.20-3.40); #Monocytes 0.9 thou/uL (0.11-0.59); #Neutrophils 8.9 thou/uL (1.40-6.50); %Basophils 0.6 % (0.0-1.0); %Eosinophils 2.5 % (0.0-10.0); %Monocytes 7.3 % (0.0-10.0); %Neutrophils 74.6 % (42.0-75.0); Hemoglobin 12.8 g/dL (14.0-18.0); Mean Corpuscular HGB CONC 33.4 g/dL (32.0-36.0); Mean Corpuscular Hemoglobin 29.5 pg (27.0-31.0); Mean Corpuscular Volume 88.1 fl (80.0-94.0); Mean Platelet Volume 6.9 fL (7.4-10.4); Platelet Count 292 thou/uL (130-400); RBC Distribution Width 13.5 % (11.5-14.5); Red Blood Cell (RBC) Count 4.34 mill/uL (4.70-6.10); White Blood Cell (WBC) Count 11.9 thou/uL (4.8-10.8)
[2017-03-05 07:51] LABS: Anion Gap 14 mmol/L (10-20); BUN (Urea Nitrogen) 48 mg/dL (8.9-20.6); Calc. Creatinine Clearance 0 mL/min (70-130); Calcium 9.4 mg/dL (7.8-10.44); Carbon Dioxide 23 mmol/L (22-29); Chloride 103 mmol/L (98-107); Estimated GFR-MDRD 19; Glucose 159 mg/dL (70-105); Potassium 4.4 mmol/L (3.5-5.1); Sodium 136 mmol/L (136-145)
== END 2017-03-05 07:08 | disposition home or self-care (01) ==
LOC: NAV LABSP 07:07
PROVIDERS: ATTEND Family Medicine
DX: E11.9 Type 2 diabetes mellitus without complications (principal); I50.9 Heart failure, unspecified
CPT/HCPCS: 36415; 80048; 85025

== ENCOUNTER 2017-03-12 07:16 | Outpatient (CLI) | payer OTHER ==
[2017-03-12 08:13] LABS: #Basophils 0.1 thou/uL (0.0-0.2); #Eosinphils 0.3 thou/uL (0.0-0.7); #Lymphocytes 1.8 thou/uL (1.20-3.40); #Monocytes 0.6 thou/uL (0.11-0.59); #Neutrophils 7.1 thou/uL (1.40-6.50); %Basophils 0.8 % (0.0-1.0); %Monocytes 5.8 % (0.0-10.0); %Neutrophils 72.5 % (42.0-75.0); Hemoglobin 12.3 g/dL (14.0-18.0); Mean Corpuscular HGB CONC 33.4 g/dL (32.0-36.0); Mean Corpuscular Hemoglobin 29.6 pg (27.0-31.0); Mean Corpuscular Volume 88.8 fl (80.0-94.0); Mean Platelet Volume 7.1 fL (7.4-10.4); Platelet Count 302 thou/uL (130-400); RBC Distribution Width 12.3 % (11.5-14.5); Red Blood Cell (RBC) Count 4.16 mill/uL (4.70-6.10); White Blood Cell (WBC) Count 9.8 thou/uL (4.8-10.8)
[2017-03-12 08:26] LABS: Anion Gap 14 mmol/L (10-20); BUN (Urea Nitrogen) 46 mg/dL (8.9-20.6); Calc. Creatinine Clearance 0 mL/min (70-130); Calcium 9.1 mg/dL (7.8-10.44); Carbon Dioxide 24 mmol/L (22-29); Chloride 105 mmol/L (98-107); Estimated GFR-MDRD 20; Glucose 234 mg/dL (70-105); Potassium 4.8 mmol/L (3.5-5.1); Sodium 138 mmol/L (136-145)
== END 2017-03-12 07:17 | disposition home or self-care (01) ==
LOC: NAV LABSP 07:16
PROVIDERS: ATTEND Family Medicine
DX: E11.9 Type 2 diabetes mellitus without complications (principal); I50.9 Heart failure, unspecified
CPT/HCPCS: 36415; 80048; 85025

== ENCOUNTER 2017-06-25 08:28 | Outpatient (CLI) | payer OTHER | END 2017-06-25 08:29 | disposition home or self-care (01) | LOC: NAV LABSP 08:28 | PROVIDERS: ATTEND Family Medicine | DX: R50.9 Fever, unspecified (principal); R09.89 Other specified symptoms and signs involving the circulatory and respiratory systems ==

== ENCOUNTER 2017-11-28 12:39 | Outpatient (CLI) | payer OTHER ==
[2017-11-28 13:02] LABS: #Basophils 0.1 thou/uL (0.0-0.2); #Eosinphils 0.3 thou/uL (0.0-0.7); #Lymphocytes 1.6 thou/uL (1.20-3.40); #Monocytes 0.7 thou/uL (0.11-0.59); #Neutrophils 7.8 thou/uL (1.40-6.50); %Basophils 1.1 % (0.0-1.0); %Eosinophils 2.4 % (0.0-10.0); %Lymphocytes 15.3 % (21.0-51.0); %Monocytes 6.2 % (0.0-10.0); Hemoglobin 12.6 g/dL (14.0-18.0); Mean Corpuscular Hemoglobin 28.6 pg (27.0-31.0); Mean Corpuscular Volume 89.2 fl (80.0-94.0); Mean Platelet Volume 7.3 fL (7.4-10.4); Platelet Count 293 thou/uL (130-400); RBC Distribution Width 12.8 % (11.5-14.5); White Blood Cell (WBC) Count 10.4 thou/uL (4.8-10.8)
== END 2017-11-28 12:40 | disposition home or self-care (01) ==
LOC: NAV LABSP 12:39
PROVIDERS: ATTEND Internal Medicine
DX: R05 Cough (principal); R06.02 Shortness of breath
CPT/HCPCS: 85025

== ENCOUNTER 2018-04-11 17:27 | Emergency (ER) | payer OTHER ==
--- NOTE | 2018-04-11 19:08 | RAD ---
CHEST ONE VIEW: History: Cough. Dyspnea. Comparison: 08-05-16 FINDINGS: Cardiac silhouette is magnified and upper limits of normal in size. Pulmonary vasculature is slightly engorged with widespread reticular nodular interstitial prominence that is less severe than on the p rior study. Mediastinum is midline. No lobar consolidation or evidence of pneumothorax. IMPRESSION: Mild pulmonary vascular congestion. POS: [facility]
[2018-04-11 19:19] LABS: #Basophils 0.1 thou/uL (0.0-0.2); #Eosinphils 0.2 thou/uL (0.0-0.7); #Lymphocytes 0.8 thou/uL (1.20-3.40); #Monocytes 0.6 thou/uL (0.11-0.59); %Basophils 1.8 % (0.0-1.0); %Eosinophils 3.6 % (0.0-10.0); %Lymphocytes 11.5 % (21.0-51.0); %Monocytes 9.2 % (0.0-10.0); %Neutrophils 73.8 % (42.0-75.0); Hemoglobin 8.6 g/dL (14.0-18.0); Mean Corpuscular HGB CONC 30.7 g/dL (32.0-36.0); Mean Corpuscular Hemoglobin 28.5 pg (27.0-31.0); Mean Corpuscular Volume 92.7 fL (78.0-98.0); Mean Platelet Volume 5.9 fL (7.4-10.4); Platelet Count 223 thou/uL (130-400); RBC Distribution Width 15.6 % (11.5-14.5); White Blood Cell (WBC) Count 6.8 thou/uL (4.8-10.8)
[2018-04-11 19:34] LABS: ALT (SGPT) 16 U/L (8-55); AST (SGOT) 12 U/L (5-34); Albumin 3.6 g/dL (3.5-5.0); Alkaline Phosphatase 143 U/L (40-150); Anion Gap 14 mmol/L (10-20); BUN (Urea Nitrogen) 75 mg/dL (8.9-20.6); Bilirubin, Total 0.4 mg/dL (0.2-1.2); Calc. Creatinine Clearance 0 mL/min (70-130); Calcium 8.1 mg/dL (7.8-10.44); Carbon Dioxide 13 mmol/L (22-29); Chloride 113 mmol/L (98-107); Estimated GFR-MDRD 11; Globulin 3.2 g/dL (2.4-3.5); Glucose 145 mg/dL (70-105); Lipase 47 U/L (8-78); Potassium 4.2 mmol/L (3.5-5.1); Protein, Total 6.8 g/dL (6.0-8.3); Sodium 136 mmol/L (136-145)
[2018-04-11 20:59] LABS: Bilirubin Negative (Negative); Blood, Urine Moderate (Negative); Clarity Cloudy (Clear); Glucose, Urine (Dipstick) Negative (Negative); Leukocyte Large (Negative); Nitrite Negative (Negative); Protein, Urine (Dipstick) > or equal to 300 mg/dL (Neg-Trace); Urobilinogen 0.2 mg/dL (0.2-1.0)
[2018-04-11 21:00] LABS: WBC/HPF 21-50 HPF (0-3)
[2018-04-11 21:01] LABS: Bacteria/HPF 3+ HPF (None Seen)
--- NOTE | 2018-04-11 21:05 | CT ---
CT ABDOMEN AND PELVIS NONCONTRAST: History: Flank pain. Comparison: 07-14-16 FINDINGS: Each renal collecting system, ureter, and urinary bladder are decompressed without stone evident. Cir cumferential bilateral and symmetric thickening of the ureteral cesar and urinary bladder are stable compared to the prior exam. Lack of contrast limits evaluation for other abnormalities. Small amount of bilateral pleural fluid a nd pericardial fluid. Small amount of free fluid in the lower abdomen and pelvis. Stranding throughou t the subcutaneous fat. No evidence of bowel obstruction. Post-operative changes lumbar spine. IMPRESSION: 1. No CT evidence of urinary tract obstruction or calcification. Chronic thickening of the urothelium is stable compared to the previous exam. 2. Pleural fluid, ascites, and pericardial fluid may be related to patient fluid status given the mil d to moderate stranding throughout the subcutaneous fat. POS: [facility]
[2018-04-11] MEDS ORDERED: cefTRIAXone\\ROCEPHIN 1 GM VIAL ONE (21:14)
[2018-04-11] MEDS ORDERED: Lidocaine 1% (PF) 30 ML VIAL ONE (21:14)
== END 2018-04-11 21:45 ==
LOC: NAV ERS 17:27
DX: N39.0 Urinary tract infection, site not specified (principal); K21.9 Gastro-esophageal reflux disease without esophagitis; I12.9 Hypertensive chronic kidney disease with stage 1 through stage 4 chronic kidney disease, or unspecified chronic kidney disease; E11.22 Type 2 diabetes mellitus with diabetic chronic kidney disease; N18.4 Chronic kidney disease, stage 4 (severe); E78.5 Hyperlipidemia, unspecified; F20.9 Schizophrenia, unspecified; F31.9 Bipolar disorder, unspecified; F17.210 Nicotine dependence, cigarettes, uncomplicated; E78.1 Pure hyperglyceridemia; Z79.891 Long term (current) use of opiate analgesic; Z79.899 Other long term (current) drug therapy; Z79.01 Long term (current) use of anticoagulants
CPT/HCPCS: 71045; 74176; 80053; 81003; 81015; 83605; 83690; 85025; 87086; 87804; 93005; 94760; 96372; J0696; J2001